=== PATIENT | female | born 1950 | race Caucasian/White ===

== ENCOUNTER → 2016-04-05 | Outpatient (CLI) | payer MEDICARE ==
[2016-04-05 09:31] LABS: Basophils % (A) 1 %; CH 29.5; CHCM 32.3; Eosinophils # (A) 0.1 k/uL (0-0.7); Eosinophils % (A) 2 %; HCT 43.5 % (34.0-46.0); HDW 2.26; HGB 13.6 gm/dL (11.4-16.0); Luc # (Auto) 0.07; Luc % (Auto) 2; Lymphocytes # (A) 1.3 k/uL (1.0-4.8); Lymphocytes % (A) 29 %; MCH 28.7 pg (25.0-35.0); MCHC 31.2 g/dL (31.0-37.0); MCV 91.7 fL (80.0-100.0); Mean Platelet Volume 7.1; Monocytes # (A) 0.3 k/uL (0-1.0); Monocytes % (A) 6 %; Neutrophils # (A) 2.6 k/uL (1.3-7.7); Neutrophils % (A) 61 %; RBC 4.74 m/uL (3.80-5.40); RDW 13.2 % (11.5-15.5); WBC 4.3 k/uL (3.8-10.6); WBC (Perox) 4.61
[2016-04-05 10:11] LABS: ALT 34 U/L (9-52); AST 30 U/L (14-36); Alkaline Phosphatase 71 U/L (38-126); Amylase 51 U/L (30-110); Anion Gap 9 mmol/L; Blood Urea Nitrogen 13 mg/dL (7-17); Calcium 9.6 mg/dL (8.4-10.2); Carbon Dioxide 29 mmol/L (22-30); Chloride 107 mmol/L (98-107); Glucose 94 mg/dL (74-99); Non-African American GFR(MDRD) >60 (>60 ml/min/1.73 sqM); Potassium 4.5 mmol/L (3.5-5.1); Sodium 145 mmol/L (137-145); Total Bilirubin 0.6 mg/dL (0.2-1.3); Total Protein 6.8 g/dL (6.3-8.2)
--- NOTE | 2016-04-05 12:44 | US ---
EXAMINATION TYPE: US gallbladder DATE OF EXAM: 04/05/2016 9:46 AM COMPARISON: None CLINICAL HISTORY: 65-year-old female R10.9 ABDOMINAL PAIN. RUQ TECHNIQUE: Multiple sonographic images of the right upper quadrant were obtained. FINDINGS: Liver Length: 16.6 cm Gallbladder Wall: 0.2 cm CHD: 0.3 cm Right Kidney: 10.7 x 5.3 x 4.3 cm Pancreas: head not well seen due to overlying bowel gas Liver: Homogeneous echotexture without focal lesion. Gallbladder: There is a 1.9 cm mobile shadowing echogenic gallstone within. No abnormal gallbladder distention, wall thickening, or pericholecystic fluid. Some prominent junctional folds are present. Evidence for sonographic Borrero's sign: neg CBD: Within normal limits. Right Kidney: No hydronephrosis. IMPRESSION: Cholelithiasis with a 1.9 cm mobile gallstone. No ancillary findings of acute cholecystitis.
== END | disposition home or self-care (01) ==
LOC: RADUSWWP 08:30
PROVIDERS: ATTEND Internal Medicine
DX: K80.20 Calculus of gallbladder without cholecystitis without obstruction (principal)
CPT/HCPCS: 36415; 76705; 80053; 82150; 83690; 85025

== ENCOUNTER 2016-06-20 08:53 | Day surgery (SDC) | payer MEDICARE ==
--- NOTE | 2016-06-01 08:46 | HP ---
DATE OF ADMISSION: 06/20/2016 CHIEF COMPLAINT: Chronic cholecystitis. HISTORY OF PRESENT ILLNESS: Patient is a 66-year-old female who comes to the office complaining of frequent episodes of right upper quadrant pain. The patient states this began about 2 months ago, it last for several hours at a time. It is associated with nausea and that has persisted. No significant emesis. No fevers or chills. No change in the color of her skin, urine or stool. The patient had a work-up showing a 1.9 cm gallstone. PAST MEDICAL HISTORY: Denies. PAST SURGICAL HISTORY: Umbilical hernia, inguinal hernia, colonoscopy. MEDICATIONS: Calcium. ALLERGIES: ROCEPHIN. PHYSICAL EXAM: GENERAL: Well-developed, well-nourished elderly female in no distress. HEENT is normocephalic, sclerae is nonicteric. CHEST: No deformities. Abdomen is soft, nontender, nondistended. Extremities without edema. IMPRESSION: A 66-year-old female with chronic cholecystitis. PLAN: Will proceed with laparoscopic cholecystectomy on 06/20. The risks of bleeding, infection, biloma formation, common bile duct injury, retained common bile duct stone, trocar-related injury and conversion to an open procedure were discussed. She understands and wishes to proceed.
[2016-06-15 16:03] VITALS: BMI 21.6
[~2016-06-20 08:53] MED LIST: DEXAMETHASONE SOD PHOSPHATE 10 MG/ML 1 ML VIAL IV ONE; HEPARIN SODIUM,PORCINE 5,000 UNIT/ML 1 ML VIAL SQ ONE; HYDROmorphone 1 MG/ML 1 ML SYRINGE IVP PRN; LACTATED RINGERS 1,000 ML IV SCH; LIDOCAINE 1% 20 ML VIAL (10MG/ML) FOR IV START INTRADERMA PRN; MIDAZOLAM 2 MG/2 ML VIAL IV PRN; ONDANSETRON 4 MG/2 ML VIAL IVP ONE; SCOPOLAMINE 1.5MG/72HR PATCH TRANSDERM ONE; ceFAZolin 2 GM in SODIUM CHLORIDE 0.9% 100 ML IVPB ONE
[2016-06-20] MEDS ORDERED: ROCURONIUM BROMIDE 10 MG/ML 10 ML VIAL IV ONE (09:49)
[2016-06-20] MEDS ORDERED: LIDOCAINE 1% INJ 10MG/ML (20 ML MDV) ONE (09:49)
[2016-06-20] MEDS ORDERED: PROPOFOL 10 MG/ML 20 ML VIAL IV ONE (09:49)
[2016-06-20] MEDS ORDERED: GLYCOPYRROLATE 0.2 MG/ML 2 ML VIAL ONE (09:49)
[2016-06-20] MEDS ORDERED: MIDAZOLAM 2 MG/2 ML VIAL ONE (09:49)
[2016-06-20] MEDS ORDERED: fentaNYL (PF) 50 MCG/ML 2 ML AMP ONE (09:49)
[2016-06-20] MEDS ORDERED: SUCCINYLCHOLINE CHLORIDE 100 MG/5 ML SYR IV ONE (09:49)
[2016-06-20] MEDS ORDERED: NEOSTIGMINE 1 MG/ML 10 ML VIAL ONE (09:49)
[2016-06-20] MEDS ORDERED: HYDROmorphone (PF) 1 MG/ML ONE (09:49)
[2016-06-20] MEDS ORDERED: BUPIVACAIN-EPI 0.25%-1:200,000 30 ML VIAL SQ ONE ×2 (10:04)
[2016-06-20] MEDS ORDERED: LACTATED RINGERS 1,000 ML IV ONE (10:52)
[2016-06-20] MEDS ORDERED: NALOXONE 0.4 MG/ML 1 ML VIAL IV PRN (10:59)
[2016-06-20 11:01] VITALS: RESP 16; TEMP 96.8
--- NOTE | 2016-06-20 11:03 | P.PCN ---
Date of Procedure: 06/20/16 Procedure(s) Performed: PREOPERATIVE DIAGNOSIS: Chronic cholecystitis POSTOPERATIVE DIAGNOSIS: Same, incisional hernia PROCEDURE: Laparoscopic cholecystectomy with repair incisional hernia SURGEON: Giancarlo EBL: Minimal see anesthesia record ANESTHESIA: Gen. COMPLICATIONS: None OPERATIVE PROCEDURE: The patient was brought and placed on the operating room table in the supine position. The patient was placed under general anesthesia at that time. The abdomen was prepped and draped in the usual sterile fashion. Patient had a previous horizontal incision and previous excision of the umbilicus after a prior hernia repair. The patient had a small recurrence present just to the left of midline. Scar was opened up at that location. Dissection of the subcutaneous fat took place using blunt dissection. The fascial defect was identified. This was fairly small measuring only about 6 or 7 no meters. This was utilized for entrance into the peritoneal cavity which occurred bluntly. Insufflation took place up to 15 mmHg. 2 additional 5 mm trochars were placed in the right upper quadrant under direct visualization. A 10 mm trocar was advanced into the epigastric incision site. The gallbladder was retracted superiorly and laterally. The peritoneum overlying the infundibulum was bluntly dissected. The patient's cystic duct was visualized. The junction between the cystic duct common and hepatic duct was identified. The cystic duct was then divided after placement of 3 10 mm clips on the patient 's side and one on the specimen side. The cystic artery was identified and clipped as well. A small vessel was seen along the gallbladder fossa and clipped as well. The gallbladder was then removed from the liver bed using electrocautery. The gallbladder was then removed from the epigastric trocar site with an Endo Catch bag. The gallbladder fossa was irrigated with saline. There was no evidence of any bleeding or biliary drainage seen. I closed the trocar at the umbilicus and also the epigastrium using interrupted 0 Ethibond sutures and the Jerrod Mustafa technique. The skin at all 4 sites was closed using a 4-0 Monocryl stitch. At the end of this procedure the sponge and needle counts were correct. DISPOSITION: Stable to the recovery room
[2016-06-20] MEDS ORDERED: Acetaminophen-Codeine 300-30mg TAB PO ONE (12:56)
[2016-06-20 14:11] VITALS: BP 141/80; PULSE 80
== END 2016-06-20 14:32 | disposition home or self-care (01) ==
LOC: OR 08:53
PROVIDERS: ATTEND Surgery
DX: K80.10 Calculus of gallbladder with chronic cholecystitis without obstruction (principal); K43.2 Incisional hernia without obstruction or gangrene; Z88.1 Allergy status to other antibiotic agents; Z79.899 Other long term (current) drug therapy
CPT/HCPCS: 88304; 47562; 49565; J2250; J1100; J2710; J0690; J2405; J2001; J3010; J1170; J0330; J2704

== ENCOUNTER 2016-06-27 19:57 | Emergency (ER) | payer MEDICARE ==
[2016-06-27 20:47] VITALS: BP 161/81; PULSE 71; RESP 20; TEMP 98.5
--- NOTE | 2016-06-27 21:20 | ED ---
General Adult HPI - General Chief complaint: Recheck/Abnormal Lab/Rx Stated complaint: Post op incision lump Time Seen by Provider: 06/27/16 21:05 Source: patient, RN notes reviewed, old records reviewed Mode of arrival: ambulatory Limitations: no limitations - History of Present Illness Initial comments: Patient is 66-year-old female with chief complaint of noticing a lump over her epigastric incision from her cholecystectomy for one day. Patient states that she does have some bruising around the area as well. She denies any fever or chills, redness or drainage from the incision site. Patient states she called the on-call doctor, Dr. Dominguez. He discussed apply warm compresses over the area. Patient reports that after applying warm compresses that did seem to help. Patient states she is concerned because she is going on vacation for the next 4 days and wanted to be looked at. Patient denies any significant tenderness over the area. She reports that she had no, patients after surgery and everything went well until she noticed this lump at the incision site. All the other incision sites look well and have no evidence of lumps or drainage or erythema. - Related Data Home Medications Medication Instructions Recorded Confirmed Calcium Carbonate/Vitamin D3 1 each PO DAILY 06/15/16 06/15/16 [Calcium 500-Vit D3 600 Tablet] Previous Rx's Medication Instructions Recorded Acetaminophen with Codeine 1 tab PO Q4H #30 tab 06/20/16 [Tylenol w/codeine #3] Allergies Allergy/AdvReac Type Severity Reaction Status Date / Time ceftriaxone [From Rocephin] Allergy Intermediate Abdominal Verified 06/27/16 20: 46 Pain Review of Systems ROS Statement: Those systems with pertinent positive or pertinent negative responses have been documented in the HPI. ROS Other: All systems not noted in ROS Statement are negative. Past Medical History Past Medical History: No Reported History Additional Past Medical History / Comment(s): Lyme's disease 20 years ago History of Any Multi-Drug Resistant Organisms: None Reported Past Surgical History: Adenoidectomy, Breast Surgery, Cholecystectomy, Hernia Repair, Tonsillectomy Additional Past Surgical History / Comment(s): inguinal and umbilical hernia repairs, POLYPECTOMY-NEG Past Anesthesia/Blood Transfusion Reactions: No Reported Reaction Past Psychological History: No Psychological Hx Reported Smoking Status: Never smoker Past Alcohol Use History: Occasional Additional Past Alcohol Use History / Comment(s): NEVER SMOKED, OCC DRINKS Past Drug Use History: None Reported - Past Family History Father Family Medical History: AICD/Pacemaker Additional Family Medical History / Comment(s): AGE 79 LUNG CA Mother Family Medical History: CVA/TIA, Hypertension Additional Family Medical History / Comment(s): STILL ALIVE AGE 88 General Exam - General Exam Comments Initial Comments: 762-ghni-alt female. No distress. Limitations: no limitations General appearance: alert, in no apparent distress Head exam: Present: atraumatic, normocephalic, normal inspection Eye exam: Present: normal appearance, PERRL, EOMI. Absent: scleral icterus, conjunctival injection, periorbital swelling ENT exam: Present: normal exam, mucous membranes moist Neck exam: Present: normal inspection. Absent: tenderness, meningismus, lymphadenopathy Respiratory exam: Present: normal lung sounds bilaterally. Absent: respiratory distress, wheezes, rales, rhonchi, stridor Cardiovascular Exam: Present: regular rate, normal rhythm, normal heart sounds. Absent: systolic murmur, diastolic murmur, rubs, gallop, clicks GI/Abdominal exam: Present: soft, normal bowel sounds, other (Evidence of multiple small incisions from recent cholecystectomy. Patient largest incisions over the epigastric region. There is an evidence of a firm 2 cm mass which could be consistent with either a seroma or hematoma. Patient is nontender with pressing. No evidence of erythema around the incision site. No evidence of drainage around the incision site. Steri-Strips are still intact.) . Absent: distended, tenderness, guarding, rebound, rigid Extremities exam: Present: normal inspection, full ROM, normal capillary refill. Absent: tenderness, pedal edema, joint swelling, calf tenderness Back exam: Present: normal inspection Neurological exam: Present: alert, oriented X3, CN II-XII intact Psychiatric exam: Present: normal affect, normal mood Skin exam: Present: warm, dry, intact, normal color. Absent: rash Course Vital Signs 06/27/16 20:44 Temperature 98.5 F Pulse Rate 71 Respiratory 20 Rate Blood Pressure 161/81 O2 Sat by Pulse 97 Oximetry Medical Decision Making - Medical Decision Making Patient is a pleasant 66-year-old female with no acute distress. Patient is concerned because she has had a lump over the epigastric incision site for one day. She had a cholecystectomy done by about one week ago. She denies any drainage or erythema over this incision site. She denies any tenderness. Patient does have a 2 cm firm mass consistent with either hematoma or seroma underneath the incision. Patient states that he did get somewhat better after putting a warm compress on it. She is wanted to have it looked out before she went on vacation. No evidence of infection at this time. I also discussed the case with Dr. Jorge and he examined the patient as well. We will concluded that is likely hematoma or seroma. Patient agrees with putting warm compresses on it. She understands return parameters which included redness drainage around the incision site or fever or chills . Disposition Clinical Impression: Visit for wound check Disposition: HOME SELF-CARE Condition: Good Additional Instructions: Monitor for any signs of redness, severe tenderness or severe swelling. Patient needs to apply warm compresses over the area. If any of the redness swelling or pain do occur follow-up with her primary care return emergency department at once. Referrals: Yung Phillips MD [Primary Care Provider] - 1-2 days Time of Disposition: 21:20
== END 2016-06-27 21:23 | disposition home or self-care (01) ==
LOC: EC 19:57
DX: R19.06 Epigastric swelling, mass or lump (principal); Z79.899 Other long term (current) drug therapy; Z88.1 Allergy status to other antibiotic agents; Z90.49 Acquired absence of other specified parts of digestive tract; Z98.890 Other specified postprocedural states
CPT/HCPCS: 99283

== ENCOUNTER → 2017-05-09 | Outpatient (CLI) | payer MEDICARE ==
[2017-05-09 09:35] LABS: Basophils % (A) 0 %; Eosinophils # (A) 0.1 k/uL (0-0.7); Eosinophils % (A) 2 %; HCT 40.4 % (34.0-46.0); HGB 13.2 gm/dL (11.4-16.0); Lymphocytes # (A) 1.4 k/uL (1.0-4.8); Lymphocytes % (A) 29 %; MCH 29.1 pg (25.0-35.0); MCHC 32.5 g/dL (31.0-37.0); MCV 89.5 fL (80.0-100.0); Mean Platelet Volume 7.6; Monocytes # (A) 0.3 k/uL (0-1.0); Monocytes % (A) 6 %; Neutrophils # (A) 2.9 k/uL (1.3-7.7); Neutrophils % (A) 62 %; Platelet Count 251 k/uL (150-450); RBC 4.51 m/uL (3.80-5.40); RDW 13.2 % (11.5-15.5); WBC 4.7 k/uL (3.8-10.6)
[2017-05-09 09:53] LABS: Albumin 4.5 g/dL (3.5-5.0); Calcium 9.8 mg/dL (8.4-10.2); Potassium 3.9 mmol/L (3.5-5.1); Total Bilirubin 0.5 mg/dL (0.2-1.3); Total Protein 6.8 g/dL (6.3-8.2)
== END | disposition home or self-care (01) ==
LOC: LABWHC1 08:52
PROVIDERS: ATTEND Internal Medicine
DX: Z00.01 Encounter for general adult medical examination with abnormal findings (principal); E55.9 Vitamin D deficiency, unspecified
CPT/HCPCS: 36415; 80053; 80061; 82306; 85025

== ENCOUNTER → 2017-06-07 | Outpatient (CLI) | payer MEDICARE ==
--- NOTE | 2017-06-07 11:09 | ECHOF ---
Referral Reason:R06.09 dyspnea MEASUREMENTS -------- HEIGHT: 165.1 cm WEIGHT: 59.0 kg BP: RVIDd: 2.4 cm (< 3.3) IVSd: 1.4 cm (0.6 - 1.1) LVIDd: 3.5 cm (3.9 - 5.3) LVPWd: 1.3 cm (0.6 - 1.1) IVSs: 1.8 cm LVIDs: 1.9 cm LVPWs: 1.7 cm LAESV Index (A-L): 18.20 ml/m Ao Diam: 2.9 cm (2.0 - 3.7) AV Cusp: 1.7 cm (1.5 - 2.6) LA Diam: 2.9 cm (2.7 - 3.8) MV EXCURSION: 13.362 mm (> 18.000) MV EF SLOPE: 47 mm/s (70 - 150) EPSS: 0.5 cm MV E Vinicius: 0.59 m/s MV DecT: 254 ms MV A Vinicius: 0.81 m/s MV E/A Ratio: 0.73 RAP: 5.00 mmHg RVSP: 23.61 mmHg FINDINGS -------- Sinus rhythm. This was a technically good study. The left ventricular size is normal. There is mild concentric left ventricular hypertrophy. Overa ll left ventricular systolic function is normal with, an EF between 55 - 60 %. The right ventricle is normal in size and function. The left atrium is normal in size. The right atrium is normal in size. The aortic valve is trileaflet, and appears structurally normal. No aortic stenosis or regurgitation. The mitral valve leaflets are mildly thickened. Mild mitral regurgitation is present. Mild tricuspid regurgitation present. The right ventricular systolic pressure, as measured by Doppl er, is 23.61mmHg. Pulmonic valve appears structurally normal. The aortic root size is normal. Normal inferior vena cava with normal inspiratory collapse consistent with estimated right atrial pre ssure of 5 mmHg. The pericardium is normal. CONCLUSIONS -------- 1. Sinus rhythm. 2. This was a technically good study. 3. The left ventricular size is normal. 4. There is mild concentric left ventricular hypertrophy. 5. Overall left ventricular systolic function is normal with, an EF between 55 - 60 %. 6. The right ventricle is normal in size and function. 7. The left atrium is normal in size. 8. The right atrium is normal in size. 9. The aortic valve is trileaflet, and appears structurally normal. No aortic stenosis or regurgitati on. 10. The mitral valve leaflets are mildly thickened. 11. Mild mitral regurgitation is present. 12. Mild tricuspid regurgitation present. 13. The right ventricular systolic pressure, as measured by Doppler, is 23.61mmHg. 14. Pulmonic valve appears structurally normal. 15. The aortic root size is normal. 16. Normal inferior vena cava with normal inspiratory collapse consistent with estimated right atrial pressure of 5 mmHg. 17. The pericardium is normal. SPEEDER HAND: Siena Britt RDCS
--- NOTE | 2017-06-07 12:23 | ECHOS ---
STRESS ECHOCARDIOGRAM INDICATIONS: Hypertension. MEDICATIONS: Lisinopril. BASELINE HEART RATE: 72 BASELINE BLOOD PRESSURE: 135/100 MAXIMUM HEART RATE: 153 MAXIMUM BLOOD PRESSURE: 194/89 85% MPHR: 129 100% MPHR: 152 METS: 6.8 MAXIMUM STAGE REACHED: 2 TOTAL EXERCISE TIME: 6:00 CLINICAL INFORMATION: History of hypertension, referred for a stress echo. Baseline heart rate was 72 beats per minute. Baseline blood pressure 135/100 mmHg. Baseline 12-lead ECG shows normal sinus rhythm with normal cardiac intervals, normal ST segments and infrequent left bundle branch block morphology PVCs with an upright QRS in lead 2. Patient exercised on Will protocol for 6 minutes achieving a peak heart rate of 153 beats per minute. Normal blood pressure response to exercise. There was no ECG evidence for ischemia. PVCs continued through the stress test with slight increase in frequency, but no nonsustained ventricular tachycardia noted. There was no ECG evidence for ischemia. Baseline 2D echo showed normal LV size and systolic function without segmental wall motion abnormalities. Definity contrast was used to delineate the LV concordant borders. There was augmentation of overall LV contractility without development of any wall motion abnormalities at recovery, regional global LV systolic function remained normal. IMPRESSION: 1. No ECG or echocardiographic evidence for ischemia. 2. Average exercise capacity. 3. Premature ventricular contractions noted. Mild increase in premature ventricular contraction frequency during exercise. MMODL / IJN: [id number] /
== END | disposition home or self-care (01) ==
LOC: RADECHMAIN 08:01
PROVIDERS: ATTEND Internal Medicine
DX: I08.1 Rheumatic disorders of both mitral and tricuspid valves (principal); I49.3 Ventricular premature depolarization; I50.9 Heart failure, unspecified
CPT/HCPCS: 93017; 93306; C8928; Q9950; 93350

== ENCOUNTER → 2017-07-03 | Outpatient (CLI) | payer MEDICARE | END | disposition home or self-care (01) | LOC: LABWHC1 10:03 | PROVIDERS: ATTEND Internal Medicine | DX: R53.83 Other fatigue (principal); Z86.19 Personal history of other infectious and parasitic diseases | CPT/HCPCS: 36415; 86618; 86638; 86666; 86753 ==

== ENCOUNTER → 2018-01-08 | Outpatient (CLI) | payer MEDICARE ==
[2018-01-08 09:43] LABS: Basophils % (A) 1 %; Eosinophils # (A) 0.1 k/uL (0-0.7); Eosinophils % (A) 3 %; HCT 40.5 % (34.0-46.0); HGB 13.3 gm/dL (11.4-16.0); Lymphocytes # (A) 1.3 k/uL (1.0-4.8); Lymphocytes % (A) 33 %; MCH 29.8 pg (25.0-35.0); MCV 90.3 fL (80.0-100.0); Monocytes # (A) 0.2 k/uL (0-1.0); Monocytes % (A) 6 %; Neutrophils # (A) 2.2 k/uL (1.3-7.7); Neutrophils % (A) 56 %; Platelet Count 216 k/uL (150-450); RBC 4.48 m/uL (3.80-5.40); RDW 13.4 % (11.5-15.5)
[2018-01-08 10:34] LABS: Appearance,Urine Clear (Clear); Bacteria,Urine Rare /hpf; Bilirubin,Urine Negative (Negative); Blood,Urine Negative (Negative); Color,Urine Yellow; Glucose,Urine (UA) Negative (Negative); Ketones,Urine Negative (Negative); Leukocyte Esterase,Urine Negative (Negative); Mucus,Urine Many /hpf; Nitrite,Urine Negative (Negative); Protein,Urine 1+ (Negative); RBC,Urine 5 /hpf (0-5); Specific Gravity,Urine 1.028 (1.001-1.035); Squamous Epithelial Cell,Urine <1 /hpf (0-4); Urobilinogen,Urine <2.0 mg/dL (<2.0); WBC,Urine 5 /hpf (0-5)
[2018-01-08 17:10] LABS: Albumin 4.5 g/dL (3.80-4.90); Albumin/Globulin Ratio 2.81 (1.20-2.10); Anion Gap 6.7 mmol/L (4.00-12.00); Calcium 9.6 mg/dL (8.7-10.3); Carbon Dioxide 28.3 mmol/L (21.6-31.8); Globulin 1.6 g/dL (2.1-3.7); Potassium 4.4 mmol/L (3.5-5.5); Total Bilirubin 0.5 mg/dL (0.2-1.2); Total Protein 6.1 g/dL (6.2-8.2)
== END | disposition home or self-care (01) ==
LOC: LABWHC1 08:40
PROVIDERS: ATTEND Internal Medicine
DX: Z00.01 Encounter for general adult medical examination with abnormal findings (principal); E55.9 Vitamin D deficiency, unspecified
CPT/HCPCS: 36415; 80053; 81001; 82306; 85025

== ENCOUNTER → 2018-02-24 | Outpatient (CLI) | payer MEDICARE ==
--- NOTE | 2018-02-27 11:08 | MM ---
Reason for exam: screening (asymptomatic). Last mammogram was performed 1 year ago. History: Patient is postmenopausal. Benign excisional biopsy of the right breast, 1991. Physical Findings: A clinical breast exam by your physician is recommended on an annual basis and results should be correlated with mammographic findings. MG 3D Screening Mammo W/Cad Bilateral CC, MLO, and XCCL view(s) were taken. Prior study comparison: February 21, 2017, bilateral MG 3d screening mammo w/cad. February 13, 2016, bilateral MG 3d screening mammo w/cad. The breast tissue is heterogeneously dense. This may lower the sensitivity of mammography. There is no discrete abnormality. ASSESSMENT: Negative, BI-RAD 1 RECOMMENDATION: Routine screening mammogram of both breasts in 1 year.
== END | disposition home or self-care (01) ==
LOC: RADMAMWWP 08:34
PROVIDERS: ATTEND Obstetrics & Gynecology
DX: Z12.31 Encounter for screening mammogram for malignant neoplasm of breast (principal)
CPT/HCPCS: 77063; 77067

== ENCOUNTER 2018-06-25 23:49 | Observation (INO) | payer MEDICARE ==
[2018-06-26 00:58] LABS: Basophils % (A) 0 %; Eosinophils # (A) 0.2 k/uL (0-0.7); Eosinophils % (A) 3 %; HCT 39.3 % (34.0-46.0); HGB 12.9 gm/dL (11.4-16.0); Lymphocytes # (A) 1.6 k/uL (1.0-4.8); Lymphocytes % (A) 29 %; MCH 29.1 pg (25.0-35.0); MCHC 32.9 g/dL (31.0-37.0); MCV 88.4 fL (80.0-100.0); Mean Platelet Volume 7.4; Monocytes # (A) 0.3 k/uL (0-1.0); Monocytes % (A) 6 %; Neutrophils # (A) 3.2 k/uL (1.3-7.7); Neutrophils % (A) 60 %; Platelet Count 221 k/uL (150-450); RBC 4.44 m/uL (3.80-5.40); RDW 13.7 % (11.5-15.5); WBC 5.4 k/uL (3.8-10.6)
--- NOTE | 2018-06-26 01:04 | ED ---
General Adult HPI - General Chief complaint: Chest Pain Stated complaint: Allergic Reaction Time Seen by Provider: 06/26/18 00:21 Source: patient, RN notes reviewed, old records reviewed Mode of arrival: ambulatory Limitations: no limitations - History of Present Illness Initial comments: 68 -year-old female with past medical history of hypertension presents for evaluation of chest pain. Patient's chest pain began on the right lateral aspect of her chest wall which was initiated with movement. She had this pain since 9 AM this morning approximately 14 hours prior to arrival. She did take an Aleve on several occasions started with some improvement. 2 hours prior to arrival she developed bilateral chest pain across the lower portion of her chest which was associated with diaphoresis and nausea. She has no previous history of CAD. No history of DVT or PE. Patient states this pain didn't radiate into her back. Pain has since improved, it lasted approximately 10 minutes. - Related Data Home Medications Medication Instructions Recorded Confirmed Calcium Carbonate/Vitamin D3 1 each PO DAILY 06/15/16 06/15/16 [Calcium 500-Vit D3 600 Tablet] Lisinopril [Zestril] 10 mg PO DAILY 06/26/18 06/26/18 Previous Rx's Medication Instructions Recorded Acetaminophen with Codeine 1 tab PO Q4H #30 tab 06/20/16 [Tylenol w/codeine #3] Allergies Allergy/AdvReac Type Severity Reaction Status Date / Time ceftriaxone [From Rocephin] Allergy Intermediate Abdominal Verified 06/27/16 20:46 Pain Review of Systems ROS Statement: Those systems with pertinent positive or pertinent negative responses have been documented in the HPI. ROS Other: All systems not noted in ROS Statement are negative. Past Medical History Past Medical History: No Reported History Additional Past Medical History / Comment(s): Lyme's disease 20 years ago History of Any Multi-Drug Resistant Organisms: None Reported Past Surgical History: Adenoidectomy, Breast Surgery, Cholecystectomy, Hernia Repair, Tonsillectomy Additional Past Surgical History / Comment(s): inguinal and umbilical hernia repairs, POLYPECTOMY-NEG Past Anesthesia/Blood Transfusion Reactions: No Reported Reaction Past Psychological History: No Psychological Hx Reported Smoking Status: Never smoker Past Alcohol Use History: Occasional Past Drug Use History: None Reported - Past Family History Father Family Medical History: AICD/Pacemaker Additional Family Medical History / Comment(s): AGE 79 LUNG CA Mother Family Medical History: CVA/TIA, Hypertension Additional Family Medical History / Comment(s): STILL ALIVE AGE 88 General Exam Limitations: no limitations General appearance: alert, in no apparent distress Head exam: Present: atraumatic, normocephalic Eye exam: Present: normal appearance, PERRL ENT exam: Present: normal exam Neck exam: Present: normal inspection. Absent: tenderness, meningismus Respiratory exam: Present: normal lung sounds bilaterally. Absent: respiratory distress, wheezes Cardiovascular Exam: Present: regular rate, normal rhythm GI/Abdominal exam: Present: soft. Absent: distended, tenderness, guarding Extremities exam: Present: normal inspection, normal capillary refill. Absent: pedal edema Neurological exam: Present: alert, oriented X3, CN II-XII intact. Absent: motor sensory deficit Psychiatric exam: Present: normal affect, normal mood Skin exam: Present: warm, dry, intact, normal color. Absent: cyanosis, diaphoretic Course Vital Signs 06/26/18 06/26/18 00:11 02:30 Temperature 97.5 F L Pulse Rate 58 L 57 L Respiratory 20 16 Rate Blood Pressure 161/81 147/72 O2 Sat by Pulse 100 99 Oximetry EKG Findings - EKG Comments: EKG Findings:: EKG: Sinus bradycardia, rate of 59 CO interval 158, QRS duration 98, QTC 449, no ST segment elevation or depression, T waves are upright Medical Decision Making - Medical Decision Making 68 -year-old female with chest pain. Just prior to arrival patient had bilateral lower chest pain with diaphoresis and nausea. This pain didn't radiate to her back. She was describing the pain is sharp in nature. There is concern for aortic pathology. EKG obtained, this was negative for definitive si gns of ischemia. Chest x-ray showed normal heart, normal mediastinum, no acute cardiopulmonary disease. CT angiography was obtained which showed a normal aorta, there was fecal impaction and constipation. No acute abdominal or cardiothoracic pathology. Normal CBC, normal CMP, urinalysis negative. Pain is somewhat concerning. We will be kept in observation for serial cardiac enzymes, telemetry, cardiology consultation. - Lab Data Result diagrams: 06/26/18 00:50 06/26/18 00:50 Lab Results 06/26/18 06/26/18 06/26/18 Range/Units 00:50 00:50 00:50 WBC 5.4 (3.8-10.6) k/uL RBC 4.44 (3.80-5.40) m/uL Hgb 12.9 (11.4-16.0) gm/dL Hct 39.3 (34.0-46.0) % MCV 88.4 (80.0-100.0) fL MCH 29.1 (25.0-35.0) pg MCHC 32.9 (31.0-37.0) g/dL RDW 13.7 (11.5-15.5) % Plt Count 221 (150-450) k/uL Neutrophils % 60 % Lymphocytes % 29 % Monocytes % 6 % Eosinophils % 3 % Basophils % 0 % Neutrophils # 3.2 (1.3-7.7) k/uL Lymphocytes # 1.6 (1.0-4.8) k/uL Monocytes # 0.3 (0-1.0) k/uL Eosinophils # 0.2 (0-0.7) k/uL Basophils # 0.0 (0-0.2) k/uL PT 10.2 (9.0-12.0) sec INR 0.9 (<1.2) APTT 24.2 (22.0-30.0) sec Sodium 141 (137-145) mmol/L Potassium 3.8 (3.5-5.1) mmol/L Chloride 107 (98-107) mmol/L Carbon Dioxide 25 (22-30) mmol/L Anion Gap 9 mmol/L BUN 13 (7-17) mg/dL Creatinine 0.76 (0.52-1.04) mg/dL Est GFR (CKD-EPI)AfAm >90 (>60 ml/min/1.73 sqM) Est GFR (CKD-EPI)NonAf 81 (>60 ml/min/1.73 sqM) Glucose 101 H (74-99) mg/dL Plasma Lactic Acid Theodore (0.7-2.0) mmol/L Calcium 9.7 (8.4-10.2) mg/dL Magnesium 2.0 (1.6-2.3) mg/dL Total Bilirubin 0.5 (0.2-1.3) mg/dL AST 37 H (14-36) U/L ALT 35 (9-52) U/L Alkaline Phosphatase 72 (38-126) U/L Troponin I (0.000-0.034) ng/mL Total Protein 6.5 (6.3-8.2) g/dL Albumin 4.5 (3.5-5.0) g/dL Lipase 309 H (23-300) U/L Urine Color Urine Appearance (Clear) Urine pH (5.0-8.0) Ur Specific [place] (1.001-1.035) Urine Protein (Negative) Urine Glucose (UA) (Negative) Urine Ketones (Negative) Urine Blood (Negative) Urine Nitrite (Negative) Urine Bilirubin (Negative) Urine Urobilinogen (<2.0) mg/dL Ur Leukocyte Esterase (Negative) Urine RBC (0-5) /hpf Urine WBC (0-5) /hpf Ur Squamous Epith Cells (0-4) /hpf 06/26/18 06/26/18 06/26/18 Range/Units 00:50 00:50 02:05 WBC (3.8-10.6) k/uL RBC (3.80-5.40) m/uL Hgb (11.4-16.0) gm/dL Hct (34.0-46.0) % MCV (80.0-100.0) fL MCH (25.0-35.0) pg MCHC (31.0-37.0) g/dL RDW (11.5-15.5) % Plt Count (150-450) k/uL Neutrophils % % Lymphocytes % % Monocytes % % Eosinophils % % Basophils % % Neutrophils # (1.3-7.7) k/uL Lymphocytes # (1.0-4.8) k/uL Monocytes # (0-1.0) k/uL Eosinophils # (0-0.7) k/uL Basophils # (0-0.2) k/uL PT (9.0-12.0) sec INR (<1.2) APTT (22.0-30.0) sec Sodium (137-145) mmol/L Potassium (3.5-5.1) mmol/L Chloride (98-107) mmol/L Carbon Dioxide (22-30) mmol/L Anion Gap mmol/L BUN (7-17) mg/dL Creatinine (0.52-1.04) mg/dL Est GFR (CKD-EPI)AfAm (>60 ml/min/1.73 sqM) Est GFR (CKD-EPI)NonAf (>60 ml/min/1.73 sqM) Glucose (74-99) mg/dL Plasma Lactic Acid Theodore 0.9 (0.7-2.0) mmol/L Calcium (8.4-10.2) mg/dL Magnesium (1.6-2.3) mg/dL Total Bilirubin (0.2-1.3) mg/dL AST (14-36) U/L ALT (9-52) U/L Alkaline Phosphatase (38-126) U/L Troponin I <0.012 (0.000-0.034) ng/mL Total Protein (6.3-8.2) g/dL Albumin (3.5-5.0) g/dL Lipase (23-300) U/L Urine Color Colorless Urine Appearance Clear (Clear) Urine pH 7.0 (5.0-8.0) Ur Specific [place] 1.020 (1.001-1.035) Urine Protein Negative (Negative) Urine Glucose (UA) Negative (Negative) Urine Ketones Negative (Negative) Urine Blood Negative (Negative) Urine Nitrite Negative (Negative) Urine Bilirubin Negative (Negative) Urine Urobilinogen <2.0 (<2.0) mg/dL Ur Leukocyte Esterase Small H (Negative) Urine RBC <1 (0-5) /hpf Urine WBC 3 (0-5) /hpf Ur Squamous Epith Cells <1 (0-4) /hpf Disposition Clinical Impression: Chest pain Disposition: ADMITTED IP TO THIS [facility] Condition: Stable Is patient prescribed a controlled substance at d/c from ED?: No Referrals: Yung Phillips MD [Primary Care Provider] - 1-2 days Decision to Admit Reason: Admit from EC Decision Date: 06/26/18 Decision Time: 03:34
[2018-06-26 01:07] LABS: ALT 35 U/L (9-52); AST 37 U/L (14-36); Albumin 4.5 g/dL (3.5-5.0); Alkaline Phosphatase 72 U/L (38-126); Anion Gap 9 mmol/L; Blood Urea Nitrogen 13 mg/dL (7-17); Calcium 9.7 mg/dL (8.4-10.2); Carbon Dioxide 25 mmol/L (22-30); Chloride 107 mmol/L (98-107); Glucose 101 mg/dL (74-99); Lipase 309 U/L (23-300); Potassium 3.8 mmol/L (3.5-5.1); Sodium 141 mmol/L (137-145); Total Bilirubin 0.5 mg/dL (0.2-1.3); Total Protein 6.5 g/dL (6.3-8.2)
[2018-06-26 01:08] LABS: INR 0.9 (<1.2); Partial Thromboplastin Time 24.2 sec (22.0-30.0); Prothrombin Time 10.2 sec (9.0-12.0)
[2018-06-26 02:15] LABS: Appearance,Urine Clear (Clear); Bilirubin,Urine Negative (Negative); Blood,Urine Negative (Negative); Color,Urine Colorless; Glucose,Urine (UA) Negative (Negative); Ketones,Urine Negative (Negative); Leukocyte Esterase,Urine Small (Negative); Nitrite,Urine Negative (Negative); Protein,Urine Negative (Negative); RBC,Urine <1 /hpf (0-5); Squamous Epithelial Cell,Urine <1 /hpf (0-4); Urobilinogen,Urine <2.0 mg/dL (<2.0); WBC,Urine 3 /hpf (0-5)
--- NOTE | 2018-06-26 02:16 | CT ---
EXAM: CT Angiography Chest With and without Intravenous Contrast CLINICAL HISTORY: ITS.REASON CT Reason: Pain TECHNIQUE: Axial computed tomographic angiography images of the chest with and without intravenous contrast using pulmonary embolism protocol. CTDI is 6 mGy and DLP is 776 mGy-cm. This CT exam was performed using one or more of the following dose reduction techniques: automated exposure control, adjustment of the mA and/or kV according to patient size, and/or use of iterative reconstruction technique. MIP reconstructed images were created and reviewed. COMPARISON: No relevant prior studies available. FINDINGS: Pulmonary arteries: No filling defects. Aorta: No thoracic aortic aneurysm. Lungs: No mass. No consolidation. Pleural space: No significant effusion. No pneumothorax. Heart: No cardiomegaly or pericardial effusion. Bones/joints: No acute fracture or dislocation. Soft tissues: Unremarkable. Lymph nodes: No enlarged lymph nodes. IMPRESSION: No acute intrathoracic findings. EXAM: CT Angiography Abdomen and Pelvis With and without Intravenous Contrast CLINICAL HISTORY: ITS.REASON CT Reason: Pain TECHNIQUE: Axial computed tomographic angiography images of the abdomen and pelvis with and without intravenous contrast. CTDI is 6 mGy and DLP is 776 mGy- cm. This CT exam was performed using one or more of the following dose reduction techniques: automated exposure control, adjustment of the mA and/or kV according to patient size, and/or use of iterative reconstruction technique. MIP reconstructed images were created and reviewed. COMPARISON: CT abdomen 10/15/13 FINDINGS: VASCULATURE: Aorta: No abdominal aortic aneurysm. No dissection. Celiac trunk and mesenteric arteries: No occlusion or significant stenosis. Renal arteries: No occlusion or significant stenosis. Iliac arteries: No occlusion or significant stenosis. ABDOMEN: Liver: Unremarkable. No mass. Gallbladder and bile ducts: Removed. Pancreas: Unremarkable. No ductal dilation. No mass. Spleen: Unremarkable. No splenomegaly. Adrenals: Unremarkable. No mass. Kidneys and ureters: Unremarkable. No hydronephrosis. No solid mass. Stomach and bowel: Copious amounts of stool, which appears impacted in the descending colon and sigmoid colon. No obstruction. No mucosal thickening. PELVIS: Appendix: No findings to suggest acute appendicitis. Bladder: Unremarkable. No mass. Reproductive: Unremarkable. ABDOMEN and PELVIS: Intraperitoneal space: Unremarkable. No significant fluid collection. No free air. Bones/joints: No acute fracture. No dislocation. Soft tissues: Unremarkable. Lymph nodes: Unremarkable. No enlarged lymph nodes. IMPRESSION: No acute findings in the arterial system of the abdomen and pelvis. Copious amounts of stool throughout the colon with impaction at the descending and sigmoid colon.
--- NOTE | 2018-06-26 02:25 | XR ---
EXAM: XR Chest, 1 View CLINICAL HISTORY: ITS.REASON XR Reason: Pain TECHNIQUE: Frontal view of the chest. COMPARISON: 06/26/18 CT chest IMPRESSION: Normal heart size. No consolidation or pleural effusion.
[2018-06-26] MEDS ORDERED: ASPIRIN 325 MG TAB PO STA (03:29)
[2018-06-26] MEDS ORDERED: NALOXONE 0.4 MG/ML 1 ML VIAL IV PRN (03:31)
[2018-06-26] MEDS ORDERED: MORPHINE SULFATE 4 MG/ML SYRINGE IV PRN (03:31)
[2018-06-26] MEDS ORDERED: ACETAMINOPHEN TAB 325 MG TAB PO PRN (03:31)
[2018-06-26] MEDS ORDERED: ONDANSETRON 4 MG/2 ML VIAL IVP PRN (03:31)
[2018-06-26 08:00] VITALS: TEMP 97.7
[2018-06-26] MEDS ORDERED: ASPIRIN 325 MG TAB PO SCH (09:00)
[2018-06-26 09:02] VITALS: RESP 16
[2018-06-26] MEDS ORDERED: LISINOPRIL 10 MG TAB PO SCH (09:15)
--- NOTE | 2018-06-26 10:08 | P.CRDCN ---
History of Present Illness Consult date: 06/26/18 History of present illness: This is a 68-year-old female with history of Lyme's disease and hypertension who came to the emergency room with complaints of right-sided flank pain. Apparently she was doing something physical and felt that she might have pulled a muscle. Patient took several pills of Tylenol and also Tylenol with codeine. Subsequent a she started having pain in the chest and abdomen all over the body and finally she came to the emergency room. Her EKGs did not reveal any acute changes. Her cardiac enzymes are negative. Computed tomography scan of the thoracic aorta was negative for any dissection. The pain is localized in the right flank area. There is mild tenderness and the pain increases on deep breathing. The pain is much better today. She was also found to be had constipation and impaction. Patient had in emergency seemed to feeling better. Her chest pains appear to be atypical and probably muscular skeletal. Patient is going to have an echocardiogram and stress echo. If the tests are negative patient could be discharged home. Review of Systems As per the chart Past Medical History Past Medical History: No Reported History Additional Past Medical History / Comment(s): Lyme's disease 20 years ago History of Any Multi-Drug Resistant Organisms: None Reported Past Surgical History: Adenoidectomy, Breast Surgery, Cholecystectomy, Hernia Repair, Tonsillectomy Additional Past Surgical History / Comment(s): inguinal and umbilical hernia repairs, POLYPECTOMY-NEG Past Anesthesia/Blood Transfusion Reactions: No Reported Reaction Past Psychological History: No Psychological Hx Reported Smoking Status: Never smoker Past Alcohol Use History: Occasional Past Drug Use History: None Reported - Past Family History Father Family Medical History: AICD/Pacemaker Additional Family Medical History / Comment(s): AGE 79 LUNG CA Mother Family Medical History: CVA/TIA, Hypertension Additional Family Medical History / Comment(s): STILL ALIVE AGE 88 Medications and Allergies Home Medications Medication Instructions Recorded Confirmed Type Calcium Carbonate/Vitamin D3 1 tab PO DAILY 06/15/16 06/26/18 History [Calcium 500-Vit D3 600 Tablet] Lisinopril [Zestril] 10 mg PO DAILY 06/26/18 06/26/18 History Vitamin E Acetate [Vitamin E] 200 unit PO DAILY 06/26/18 06/26/18 History Allergies Allergy/AdvReac Type Severity Reaction Status Date / Time ceftriaxone [From Rocephin] AdvReac Intermediate Abdominal Verified 06/26/18 07:35 Pain Physical Exam Vitals: Vital Signs Temp Pulse Pulse Resp BP BP Pulse Ox 06/26/18 08:59 63 16 173/80 99 06/26/18 07:58 97.7 F 65 12 141/90 100 06/26/18 06:30 79 18 158/82 98 06/26/18 06:00 98.5 F 61 16 146/89 94 L 06/26/18 05:30 60 15 136/87 97 06/26/18 05:00 63 15 146/90 97 06/26/18 04:30 59 L 16 138/82 96 06/26/18 04:00 60 16 136/86 100 06/26/18 03:30 60 18 144/84 97 06/26/18 03:00 57 L 18 131/75 98 06/26/18 02:30 57 L 16 147/72 99 06/26/18 00:11 97.5 F L 58 L 20 161/81 100 Intake and Output 06/25/18 06/26/18 06/26/18 22:59 06:59 14:59 Other: Weight 58.967 kg GENERAL EXAM: Patient is alert and oriented and doesn't appear to be in any ac [place] distress HEENT: Normocephalic. Normal reaction of pupils, equal size, normal range of extraocular motion. No erythema or exudates in the throat. NECK: No masses, no nuchal rigidity. CHEST: No chest wall deformity. LUNGS: Equal air entry with no crackles or wheeze. HEART: S1 and S2 normal with no audible mumurs or gallops. Regular rhythm, femorals equal on both sides.. ABDOMEN: No hepatosplenomegaly, normal bowel sounds, no guarding or rigidity. SKIN: No rashes CENTRAL NERVOUS SYSTEM: No focal deficits. EXTREMITIES: No cyanosis, clubbing or edema. Results 06/26/18 00:50 06/26/18 00:50 Cardiac Enzymes 06/26/18 06/26/18 06/26/18 Range/Units 00:50 00:50 05:50 AST 37 H (14-36) U/L Troponin I <0.012 <0.012 (0.000-0.034) ng/mL Coagulation 06/26/18 Range/Units 00:50 PT 10.2 (9.0-12.0) sec APTT 24.2 (22.0-30.0) sec CBC 06/26/18 Range/Units 00:50 WBC 5.4 (3.8-10.6) k/uL RBC 4.44 (3.80-5.40) m/uL Hgb 12.9 (11.4-16.0) gm/dL Hct 39.3 (34.0-46.0) % Plt Count 221 (150-450) k/uL Comprehensive Metabolic Panel 06/26/18 Range/Units 00:50 Sodium 141 (137-145) mmol/L Potassium 3.8 (3.5-5.1) mmol/L Chloride 107 (98-107) mmol/L Carbon Dioxide 25 (22-30) mmol/L BUN 13 (7-17) mg/dL Creatinine 0.76 (0.52-1.04) mg/dL Glucose 101 H (74-99) mg/dL Calcium 9.7 (8.4-10.2) mg/dL AST 37 H (14-36) U/L ALT 35 (9-52) U/L Alkaline Phosphatase 72 (38-126) U/L Total Protein 6.5 (6.3-8.2) g/dL Albumin 4.5 (3.5-5.0) g/dL Current Medications Generic Name Dose Route Start Last Admin Trade Name Freq PRN Reason Stop Dose Admin Acetaminophen 650 mg 06/26/18 03:31 Tylenol Tab PO Q6HR PRN Mild Pain or Fever > 100.5 Aspirin 325 mg 06/26/18 09:00 06/26/18 09:28 Aspirin PO 325 mg DAILY MERY Administration Lisinopril 10 mg 06/26/18 09:15 06/26/18 09:28 Zestril PO 10 mg DAILY MERY Administration Morphine Sulfate 4 mg 06/26/18 03:31 Morphine Sulfate (Inj) IV Q4HR PRN Severe Pain Naloxone HCl 0.2 mg 06/26/18 03:31 Narcan IV Q2M PRN Opioid Reversal Ondansetron HCl 4 mg 06/26/18 03:31 Zofran IVP Q8HR PRN Nausea And Vomiting Intake and Output 06/25/18 06/26/18 06/26/18 22:59 06:59 14:59 Other: Weight 58.967 kg 06/26/18 00:50 06/26/18 00:50 EKG Interpretations (text) Sinus rhythm without any acute changes Assessment and Plan (1) Essential hypertension Current Visit: Yes Status: Acute Code(s): I10 - ESSENTIAL (PRIMARY) HYPERTENSION SNOMED Code(s): 77862211 (2) Chest pain Current Visit: Yes Status: Acute Code(s): R07.9 - CHEST PAIN, UNSPECIFIED SNOMED Code(s): 49243747 (3) Abdominal pain Current Visit: No Status: Acute Code(s): R10.9 - UNSPECIFIED ABDOMINAL PAIN SNOMED Code(s): 46704114 Plan: Her pains appear to be muscular skeletal. We'll proceed with echo and stress echocardiogram. If the test are negative patient could be discharged home from [facility] standpoint.
[2018-06-26 10:33] VITALS: PULSE 64
[2018-06-26 10:46] VITALS: BMI 21.6
--- NOTE | 2018-06-26 13:07 | P.STRESS ---
- Stress Test Note Stress Test Results/Findings: Exam Performed: stress echo exercise with con Exam Date: 06/26/18 Reason for Exam: Chest Pain Height: 5 ft 5 in Weight: 58.967 kg Protocol: Will Stage: 2 Duration of Exercise: 6:09 Resting Heart Rate: 94 Resting Blood Pressure: 154/103 Maximum Achieved Heart Rate: 166 Maximum Achieved Blood Pressure: 204/71 85% PMHR: 128 100% PMHR: 151 METS: 7.3 Technologist Comment: Stress Test Results/Findings: This is a 68-year-old female with history of hypertension, family history of ischemic heart disease who was admitted to the hospital with complaints of chest pain. Stress data : Baseline EKG showed sinus rhythm with normal CT interval and QRS duration. Blood pressure at rest is 1 5403 with pulse rate of 94. Patient walked on the Will protocol for 6 minutes and 9 seconds achieving a maximum heart rate of 166 with blood pressure 204/94. EKGs taken during and after exercise did not reveal any changes of ischemia. Echo data: Baseline echo images show normal wall motion and thickening. Exercise echo images showed augmentation of wall motion and thickening in all the segments. Final impression: #1. Negative stress test #2. Negative stress echo
--- NOTE | 2018-06-26 16:54 | DS ---
DISCHARGE SUMMARY HISTORY AND PHYSICAL AND DISCHARGE SUMMARY: DATE OF ADMISSION: 06/26/2018 DATE OF DISCHARGE: 06/26/2018 PRESENTING COMPLAINT: Right hip pain. HISTORY OF PRESENTING COMPLAINT: This is a very pleasant 68-year-old patient who follows with Dr. Yung Phillips who is very active. Her only medical history is that of hypertension. The day before she was moving a basket of laundry. She developed pain on the right side just above the hip area, and the pain was still present for some time, so she took Advil. The next time around the pain was still present and she took some Tylenol #3 and went to sleep. The patient woke up with some more pain in that area and broke out in a sweat. There was no precordial pain. No shortness of breath. Because she was perspiring, she decided to come into the hospital. Troponins were negative. Cardiology was consulted. REVIEW OF SYSTEMS: CONSTITUTIONAL: Perspiring. HEENT: None. RESPIRATORY: None. CARDIOVASCULAR: None. GASTROINTESTINAL: None. GENITOURINARY: None. MUSCULOSKELETAL: Pain in the right hip. DERMATOLOGICAL: None. HEMATOLOGICAL: None. LYMPHATICS: None. PSYCHIATRY: None. NEUROLOGICAL: None. PAST MEDICAL HISTORY: 1. Lyme disease 20 years ago. 2. Hypertension. PAST SURGICAL HISTORY: 1. Adenoidectomy. 2. Breast surgery. 3. Cholecystectomy. 4. Hernia repair. 5. Tonsillectomy. 6. Inguinal and umbilical hernia repair. 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 . No smoking. Alcohol occasionally. FAMILY HISTORY: Lung cancer and stroke. HOME MEDICATIONS: 1. Vitamin E 200 units a day. 2. Zestril 10 mg p.o. daily. 3. Calcium 500 with vitamin D3 one tablet p.o. daily. ALLERGIES: CEFTRIAXONE. PHYSICAL EXAMINATION: Temperature 97.7, pulse 65, respiration 12, blood pressure 141/90, pulse ox 100% on room air. GENERAL APPEARANCE: Average build. Sitting up. Slightly anxious. EYES: Pupils equal. Conjunctivae normal. HEENT: External appearance of nose and ears normal. Oral cavity normal. NECK: JVD not raised. Mass not palpable. RESPIRATORY: Effort normal. Lungs are clear. CARDIOVASCULAR: First and second sounds normal. No edema. ABDOMEN: Soft, non-tender. Liver and spleen not palpable. LYMPHATIC: No lymph node palpable in neck or axillae. PSYCHIATRY: Alert and oriented x3. Mood and affect normal. NEUROLOGICAL: Pupils equal. Cranial nerves grossly intact. Power and sensation grossly intact. INVESTIGATIONS: White count 5.4, hemoglobin 12.9, platelets normal. Potassium 3.8. BUN and creatinine are normal. Troponin x3 negative. EKG tracing, personally reviewed by me, is nonspecific. Chest x-ray film, personally reviewed by me, shows lung newsome to be clear. Stress echocardiogram reported negative per Cardiology. Thoracic aorta CT scan negative. Large amount of stool in the colon. ASSESSMENT: 1. Right hip pain, musculoskeletal, secondary to muscular strain. 2. Severe constipation; responded well to enema this morning. 3. Essential hypertension. 4. Episode of perspiration, non-cardiac. PLAN: Patient underwent a stress test per Cardiology that was negative. The patient's right- sided pain was musculoskeletal. Will add a baby aspirin. Care was discussed with the patient and her . Questions were answered. CONSULTATION: Dr. Browning. Follow up with Dr. Chaney on 07/01/2018. Follow up with Dr. Browning on 08/04/2018. This is both a history and physical and a discharge summary. MMODL / IJN: [id number] /
[2018-06-26 17:27] VITALS: BP 128/74
--- NOTE | 2018-06-27 09:22 | ECHOS ---
Stress Test Results/Findings: Exam Performed: stress echo exercise with con Exam Date: 06/26/18 Reason for Exam: Chest Pain Height: 5 ft 5 in Weight: 58.967 kg Protocol: Will Stage: 2 Duration of Exercise: 6:09 Resting Heart Rate: 94 Resting Blood Pressure: 154/103 Maximum Achieved Heart Rate: 166 Maximum Achieved Blood Pressure: 204/71 85% PMHR: 128 100% PMHR: 151 METS: 7.3 Technologist Comment: Stress Test Results/Findings: This is a 68-year-old female with history of hypertension, family history of ischemic heart disease who was admitted to the hospital with complaints of chest pain. Stress data : Baseline EKG showed sinus rhythm with normal IN interval and QRS duration. Blood pressure at rest is 1 5403 with pulse rate of 94. Patient walked on the Will protocol for 6 minutes and 9 seconds achieving a maximum heart rate of 166 with blood pressure 204/94. EKGs taken during and after exercise did not reveal any changes of ischemia. Echo data: Baseline echo images show normal wall motion and thickening. Exercise echo images showed augmentation of wall motion and thickening in all the segments. Final impression: #1. Negative stress test #2. Negative stress echo MTDD
== END 2018-06-26 16:00 ==
LOC: EC 23:49 → 1SOBS 06-26 03:31 → 2ORMAIN 06-26 08:57
PROVIDERS: ADMIT Hospitalist; ATTEND Hospitalist
DX: S76.011A Strain of muscle, fascia and tendon of right hip, initial encounter (principal); K59.00 Constipation, unspecified; R07.89 Other chest pain; R10.9 Unspecified abdominal pain; R61 Generalized hyperhidrosis; R11.0 Nausea; I10 Essential (primary) hypertension; X50.9XXA Other and unspecified overexertion or strenuous movements or postures, initial encounter; Z90.49 Acquired absence of other specified parts of digestive tract; Z87.898 Personal history of other specified conditions; Z79.899 Other long term (current) drug therapy; Z88.1 Allergy status to other antibiotic agents; Z80.1 Family history of malignant neoplasm of trachea, bronchus and lung; Z82.3 Family history of stroke
CPT/HCPCS: 99285; 36415; 93005; 93351; 80053; 83605; 83690; 83735; 84484; 85025; 85610; 85730; 81001; 71045; 71275; 74174; G0378; Q9967

== ENCOUNTER → 2019-03-10 | Outpatient (CLI) | payer MEDICARE ==
--- NOTE | 2019-03-10 08:55 | BD ---
EXAMINATION TYPE: Axial Bone Density DATE OF EXAM: 03/10/2019 COMPARISON: 2017 CLINICAL HISTORY: M [age] Height: 5 FT 3 1/2 IN Weight: 128 FRAX RISK QUESTIONS: Alcohol (3 or more units per day): NO Family History (Parent hip fracture): YES Glucocorticoids (More than 3mos): NO (Ex: prednisone, prednisolone, methylprednisolone, dexamethasone, and hydrocortisone). History of Fracture in Adulthood: YES Secondary Osteoporosis: 1. Type 1 Diabetes: NO 2. Hyperthyroidism: NO 3. Menopause before 45: NO 4. Malnutrition: NO 5. Chronic liver disease: NO Rheumatoid Arthritis: NO Current Tobacco Use: NO RISK FACTORS HISTORY OF: Active: YES Postmenopausal woman: AGE 49 Lost more than 2 inches in height since high school: YES MEDICATIONS: Additional Medications: LISINOPRIL, BABY ASPIRIN Additional History: EXAM MEASUREMENTS: Bone mineral densitometry was performed using the [employer] System. Bone mineral density as measured about the Lumbar spine is: ----- L1-L4(G/cm2): 0.914 T Score Values are as follows: ----- L2: -3.0 ----- L3: -2.2 ----- L4: -1.4 ----- L1-L4: -2.2 Bone mineral density has: DECREASED -2.1 % since study of: 2016 Bone mineral density about the R hip (g/cm2): 0.732 Bone mineral density about the L hip (g/cm2): 0.728 T Score values are as follows: -----R Neck: -2.2 -----L Neck: -2.2 -----R Total: -2.2 -----L Total: -1.9 Bone mineral density has: DECREASED -2.7 % since study of: 2017 IMPRESSION: Osteoporosis (T Score less than -2.5). There is increased fracture risk and therapy is usually indicated based on age. Re-Screen 1-2 years. NOTE: T-SCORE=SD OF THE YOUNG ADULT MEAN.
--- NOTE | 2019-03-11 10:14 | MM ---
Reason for exam: screening (asymptomatic). Last mammogram was performed 1 year ago. History: Patient is postmenopausal. Benign excisional biopsy of the right breast, 1991. Physical Findings: A clinical breast exam by your physician is recommended on an annual basis and results should be correlated with mammographic findings. MG 3D Screening Mammo W/Cad Bilateral CC and MLO view(s) were taken. Prior study comparison: February 24, 2018, bilateral MG 3d screening mammo w/cad. February 21, 2017, bilateral MG 3d screening mammo w/cad. The breast tissue is extremely dense which could obscure a lesion on mammography. No significant changes when compared with prior studies. ASSESSMENT: Benign, BI-RAD 2 RECOMMENDATION: Routine screening mammogram of both breasts in 1 year.
== END | disposition home or self-care (01) ==
LOC: RADMAMWWP 07:22
PROVIDERS: ATTEND Obstetrics & Gynecology
DX: Z12.31 Encounter for screening mammogram for malignant neoplasm of breast (principal); Z13.820 Encounter for screening for osteoporosis; M81.0 Age-related osteoporosis without current pathological fracture; Z78.0 Asymptomatic menopausal state
CPT/HCPCS: 77063; 77067; 77080

== ENCOUNTER 2020-08-06 15:47 | Emergency (ER) | payer MEDICARE ==
[2020-08-06 16:24] VITALS: TEMP 98.1
--- NOTE | 2020-08-06 18:07 | ED ---
ENT HPI - General Source: patient Mode of arrival: ambulatory Limitations: no limitations <Edgar العلي - Last Filed: 08/06/20 19:52> <Nallely Perry - Last Filed: 08/06/20 22:03> - General Chief complaint: ENT Stated complaint: neck pain Time Seen by Provider: 08/06/20 17:41 - History of Present Illness Initial comments: 70-year-old female presents to the emergency department with a chief complaint of neck pain and difficulty swallowing. Patient reports the incident occurred early this morning when she woke up. Patient reports most of the pain is located along the anterior aspect of her neck and she has some difficulty swallowing but denies any sore throat. She denies any swelling of the neck or neck stiffness but she states it is painful, sharp in nature. She does report chills but denies any fevers. Denies any nausea vomiting or diarrhea. She denies any drooling or changes in her speech. Not diabetic. (Edgar العلي) - Related Data Home Medications Medication Instructions Recorded Confirmed Calcium Carbonate [Calcium] 600 mg PO DAILY 08/06/20 08/06/20 Cholecalciferol [Vitamin D3 (25 50 mcg PO DAILY 08/06/20 08/06/20 Mcg = 1000 Iu)] lisinopriL 20 mg PO DAILY 08/06/20 08/06/20 Previous Rx's Medication Instructions Recorded Aspirin 81 mg PO DAILY #1 chewable 06/26/18 Allergies Allergy/AdvReac Type Severity Reaction Status Date / Time ceftriaxone [From Rocephin] AdvReac Intermediate Abdominal Verified 08/06/20 20:43 Pain Review of Systems ROS Other: All systems not noted in ROS Statement are negative. <Edgar العلي - Last Filed: 08/06/20 19:52> ROS Other: All systems not noted in ROS Statement are negative. <Nallely Perry - Last Filed: 08/06/20 22:03> ROS Statement: Those systems with pertinent positive or pertinent negative responses have been documented in the HPI. Past Medical History Past Medical History: No Reported History Additional Past Medical History / Comment(s): Lyme's disease 20 years ago History of Any Multi-Drug Resistant Organisms: None Reported Past Surgical History: Adenoidectomy, Breast Surgery, Cholecystectomy, Hernia Repair, Tonsillectomy Additional Past Surgical History / Comment(s): inguinal and umbilical hernia repairs, POLYPECTOMY-NEG Past Anesthesia/Blood Transfusion Reactions: No Reported Reaction Past Psychological History: No Psychological Hx Reported Smoking Status: Never smoker Past Alcohol Use History: Occasional Past Drug Use History: None Reported - Past Family History Father Family Medical History: AICD/Pacemaker Additional Family Medical History / Comment(s): AGE 79 LUNG CA Mother Family Medical History: CVA/TIA, Hypertension Additional Family Medical History / Comment(s): STILL ALIVE AGE 88 <Edgar العلي Last Filed: 08/06/20 19:52> General Exam Limitations: no limitations General appearance: alert, in no apparent distress Head exam: Present: atraumatic, normocephalic, normal inspection Eye exam: Present: normal appearance, PERRL, EOMI Pupils: Present: normal accommodation ENT exam: Present: normal exam, normal oropharynx, mucous membranes moist, TM's normal bilaterally, normal external ear exam Neck exam: Present: normal inspection, tenderness (Tenderness over lymph nodes), full ROM, lymphadenopathy (Bilateral anterior cervical) Respiratory exam: Present: normal lung sounds bilaterally. Absent: respiratory distress, wheezes, rales, rhonchi, stridor, chest wall tenderness, accessory muscle use Cardiovascular Exam: Present: regular rate, normal rhythm, normal heart sounds. Absent: systolic murmur, diastolic murmur Extremities exam: Present: normal inspection, full ROM, normal capillary refill. Absent: tenderness, pedal edema, joint swelling Back exam: Present: normal inspection, full ROM. Absent: tenderness, CVA tenderness (R), CVA tenderness (L) Neurological exam: Present: alert, oriented X3 Psychiatric exam: Present: normal affect, normal mood Skin exam: Present: warm, dry, intact, normal color <Edgar العلي Last Filed: 08/06/20 19:52> Course Vital Signs 08/06/20 08/06/20 16:18 19:12 Temperature 98.1 F Pulse Rate 104 H 102 H Respiratory 20 18 Rate Blood Pressure 146/86 156/82 O2 Sat by Pulse 99 100 Oximetry Medical Decision Making - Lab Data Result diagrams: 08/06/20 19:13 08/06/20 19:13 <Edgar العلي Last Filed: 08/06/20 19:52> - Lab Data Result diagrams: 08/06/20 19:13 08/06/20 19:13 <Nallely Perry - Last Filed: 08/06/20 22:03> - Medical Decision Making 70-year-old female presents to the emergency department with a chief complaint of neck pain and difficulty swallowing. On physical examination, no signs of tonsillar erythema, exudates or any pharyngeal erythema. Anterior cervical lymph nodes noted. No tenderness along the spine. Her vital signs are within normal limits on initial evaluation aside from borderline tachycardia. Patient was given IV fluids, analgesia and 10 mg of IV Decadron. CT of the neck pending. At this time, patient care signed off to Dr. Perry. (Edgra العلي) Patient care was signed out to me, I reviewed the patient's CT was reviewed subglottic edema and tracheal narrowing. I went to reevaluate the patient who does have a change in her voice. I advised her of the findings and that we will transfer her to a facility with ENT ability, patient is agreeable. Time of my evaluation the patient was sitting on the edge of the bed comfortable asking if she could just be seen in the office tomorrow. Her heart rate was 102 she was not hypoxic not on oxygen. I advised the patient she does need to be seen by OSVALDO fraser and will go by ambulance which again she is agreeable. Patient care was discussed with Dr. Olivo in the ER [facility] who accepts transfer. (Nallely Perry) - Lab Data Lab Results 08/06/20 08/06/20 Range/Units 19:13 19:13 WBC 17.7 H (3.8-10.6) k/uL RBC 4.82 (3.80-5.40) m/uL Hgb 14.7 (11.4-16.0) gm/dL Hct 43.3 (34.0-46.0) % MCV 89.8 (80.0-100.0) fL MCH 30.6 (25.0-35.0) pg MCHC 34.1 (31.0-37.0) g/dL RDW 13.0 (11.5-15.5) % Plt Count 240 (150-450) k/uL MPV 7.7 Neutrophils % 92 % Lymphocytes % 2 % Monocytes % 4 % Eosinophils % 2 % Basophils % 0 % Neutrophils # 16.3 H (1.3-7.7) k/uL Lymphocytes # 0.4 L (1.0-4.8) k/uL Monocytes # 0.6 (0-1.0) k/uL Eosinophils # 0.3 (0-0.7) k/uL Basophils # 0.0 (0-0.2) k/uL Sodium 138 (137-145) mmol/L Potassium 4.4 (3.5-5.1) mmol/L Chloride 104 (98-107) mmol/L Carbon Dioxide 26 (22-30) mmol/L Anion Gap 8 mmol/L BUN 10 (7-17) mg/dL Creatinine 0.65 (0.52-1.04) mg/dL Est GFR (CKD-EPI)AfAm >90 (>60 ml/min/1.73 sqM) Est GFR (CKD-EPI)NonAf 90 (>60 ml/min/1.73 sqM) Glucose 140 H (74-99) mg/dL Calcium 10.1 (8.4-10.2) mg/dL Total Bilirubin 1.0 (0.2-1.3) mg/dL AST 43 H (14-36) U/L ALT 21 (4-34) U/L Alkaline Phosphatase 105 (38-126) U/L Total Protein 7.3 (6.3-8.2) g/dL Albumin 5.0 (3.5-5.0) g/dL Disposition <Edgar العلي - Last Filed: 08/06/20 19:52> - Out of Hospital Transfer - Req. Specs Out of Hospital Transfer - Requested Specifics: Other Emergency Center ([place]) <Nallely Perry - Last Filed: 08/06/20 22:03> Clinical Impression: Subglottic edema Disposition: OTHER INSTITUTION NOT DEFINED Condition: Critical Referrals: Vicky Carrizales MD [Primary Care Provider] - 1-2 days
[2020-08-06] MEDS ORDERED: MORPHINE SULFATE 4 MG/ML SYRINGE IVP STA (18:10)
[2020-08-06] MEDS ORDERED: DEXAMETHASONE SOD PHOSPHATE 10 MG/ML 1 ML VIAL IV STA (18:10)
[2020-08-06] MEDS ORDERED: SODIUM CHLORIDE 0.9% 1,000 ML IV STA (18:10)
[2020-08-06 19:12] VITALS: RESP 18
[2020-08-06 19:22] LABS: Basophils % (A) 0 %; Eosinophils # (A) 0.3 k/uL (0-0.7); Eosinophils % (A) 2 %; HCT 43.3 % (34.0-46.0); HGB 14.7 gm/dL (11.4-16.0); Lymphocytes # (A) 0.4 k/uL (1.0-4.8); Lymphocytes % (A) 2 %; MCH 30.6 pg (25.0-35.0); MCHC 34.1 g/dL (31.0-37.0); MCV 89.8 fL (80.0-100.0); Mean Platelet Volume 7.7; Monocytes # (A) 0.6 k/uL (0-1.0); Monocytes % (A) 4 %; Neutrophils # (A) 16.3 k/uL (1.3-7.7); Neutrophils % (A) 92 %; Platelet Count 240 k/uL (150-450); RBC 4.82 m/uL (3.80-5.40); WBC 17.7 k/uL (3.8-10.6)
[2020-08-06 19:35] LABS: ALT 21 U/L (4-34); AST 43 U/L (14-36); African American GFR (CKD) >90 (>60 ml/min/1.73 sqM); Alkaline Phosphatase 105 U/L (38-126); Anion Gap 8 mmol/L; Blood Urea Nitrogen 10 mg/dL (7-17); Calcium 10.1 mg/dL (8.4-10.2); Carbon Dioxide 26 mmol/L (22-30); Chloride 104 mmol/L (98-107); Glucose 140 mg/dL (74-99); Non-African American GFR(CKD) 90 (>60 ml/min/1.73 sqM); Potassium 4.4 mmol/L (3.5-5.1); Sodium 138 mmol/L (137-145); Total Protein 7.3 g/dL (6.3-8.2)
--- NOTE | 2020-08-06 20:52 | CT ---
EXAMINATION TYPE: CT soft tissue neck w con DATE OF EXAM: 08/06/2020 COMPARISON: None HISTORY: Hoarseness snd difficulty with difficulty swallowing. CT DLP: 235.4 mGycm Automated exposure control for dose reduction was used. CONTRAST: Performed with IV Contrast, patient injected with 100 mL of Isovue 300. Images obtained from the ascending aorta to the mid orbits with IV contrast. Skull base is intact. There is normal aeration of the mastoid sinuses. There is normal branching isabel amauri of the great vessels on the aortic arch. Thoracic aorta is atheromatous. There is arterial flow i n the subclavian arteries. Thyroid gland is symmetric. There is contrast opacification of the jugular veins. Trachea is intact. Epiglottis is within normal limits. There is narrowing of the subglottic t rachea this could relate to significant edema in the wall of the hypopharynx. The lower trachea is in tact. The tonsils and adenoids are within normal limits. The tongue is intact. There is no significant cerv ical adenopathy. 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 There is probably significant circumferen tial subglottic edema. No asymmetric mass.
[2020-08-06 22:34] VITALS: BP 158/92; PULSE 112
== END 2020-08-06 22:40 | disposition other institution (70) ==
LOC: EC 15:47
DX: J38.4 Edema of larynx (principal); Z79.82 Long term (current) use of aspirin; Z79.899 Other long term (current) drug therapy
CPT/HCPCS: 36415; 80053; 85025; 70491; 99285; 96374; 96375; J2270; J1100; Q9967

== ENCOUNTER → 2020-09-15 | Outpatient (CLI) | payer MEDICARE ==
--- NOTE | 2020-09-19 08:26 | MM ---
Reason for exam: screening (asymptomatic). Last mammogram was performed 1 year and 6 months ago. History: Patient is postmenopausal. Benign excisional biopsy of the right breast, 1991. Physical Findings: A clinical breast exam by your physician is recommended on an annual basis and results should be correlated with mammographic findings. MG 3D Screening Mammo W/Cad Bilateral CC and MLO view(s) were taken. Prior study comparison: March 10, 2019, bilateral MG 3d screening mammo w/cad. February 24, 2018, bilateral MG 3d screening mammo w/cad. The breast tissue is heterogeneously dense. This may lower the sensitivity of mammography. No significant changes when compared with prior studies. ASSESSMENT: Benign, BI-RAD 2 RECOMMENDATION: Routine screening mammogram of both breasts in 1 year.
== END | disposition home or self-care (01) ==
LOC: RADMAMWWP 06:59
PROVIDERS: ATTEND Internal Medicine
DX: Z12.31 Encounter for screening mammogram for malignant neoplasm of breast (principal); Z78.0 Asymptomatic menopausal state
CPT/HCPCS: 77063; 77067

== ENCOUNTER → 2021-05-30 | Outpatient (CLI) | payer MEDICARE ==
[2021-05-30 14:21] LABS: Basophils # (A) 0.04 X 10*3/uL (0.00-0.10); Basophils % (A) 0.7 %; Eosinophils # (A) 0.13 X 10*3/uL (0.04-0.35); Eosinophils % (A) 2.2 %; HGB 13.5 g/dL (12.0-15.0); Immature Grans, Automated 0.3 %; Lymphocytes # (A) 1.73 X 10*3/uL (0.90-5.00); Lymphocytes % (A) 28.9 %; MCHC 31.4 g/dL (32.0-37.0); MCV 92.3 fL (80.0-97.0); Mean Platelet Volume 11.1 fL (9.5-12.2); Monocytes # (A) 0.51 X 10*3/uL (0.20-1.00); Monocytes % (A) 8.5 %; NRBC Per 100 WBC 0 /100 WBCS (0.0-0.0); Neutrophils # (A) 3.56 X 10*3/uL (1.80-7.70); Neutrophils % (A) 59.4 %; Platelet Count 260 X 10*3/uL (140-440); RBC 4.66 X 10*6/uL (4.10-5.20); RDW 13.6 % (11.5-14.5); WBC 5.99 X 10*3/uL (4.50-10.00)
[2021-05-30 14:46] LABS: ALT 17 U/L (8-44); AST 30 U/L (13-35); Albumin 4.8 g/dL (3.8-4.9); Alkaline Phosphatase 105 U/L (41-126); BUN/Creat Ratio 12.67 Ratio (12.00-20.00); Blood Urea Nitrogen 11.4 mg/dL (9.0-27.0); Calcium 9.8 mg/dL (8.7-10.3); Carbon Dioxide 24.2 mmol/L (20.0-27.5); Chloride 106 mmol/L (96-109); Chol/HDL Ratio 2.32 Ratio; Globulin 2.4 g/dL (1.6-3.3); Glucose 105 mg/dL (70-110); LDL Cholesterol,Calculated 93.6 mg/dL (0.0-131.0); Non-African American GFR(CKD) 63.9 (60.0-200.0); Potassium 3.5 mmol/L (3.5-5.5); Sodium 143 mmol/L (135-145); Total Protein 7.2 g/dL (6.2-8.2); VLDL Calculation 15.08 mg/dL (5.00-40.00)
== END | disposition home or self-care (01) ==
LOC: LABWHC1 08:41
PROVIDERS: ATTEND Family Medicine
DX: M81.0 Age-related osteoporosis without current pathological fracture (principal); Z82.49 Family history of ischemic heart disease and other diseases of the circulatory system
CPT/HCPCS: 36415; 80053; 80061; 82306; 85025

== ENCOUNTER → 2021-09-20 | Outpatient (CLI) | payer MEDICARE ==
--- NOTE | 2021-09-20 12:17 | BD ---
EXAMINATION TYPE: Axial Bone Density DATE OF EXAM: 09/20/2021 COMPARISON: NONE CLINICAL HISTORY: 71 years year old Female. ICD-10 CODE: M81.0 Osteoporosis Height: 5 FT 3 IN Weight: 120 FRAX RISK QUESTIONS: Alcohol (3 or more units per day): NO Family History (Parent hip fracture): YES Glucocorticoids (More than 3mos): NO (Ex: prednisone, prednisolone, methylprednisolone, dexamethasone, and hydrocortisone). History of Fracture in Adulthood: YES Secondary Osteoporosis: 1. Type 1 Diabetes: NO 2. Hyperthyroidism: NO 3. Menopause before 45: NO 4. Malnutrition: NO 5. Chronic liver disease: NO Rheumatoid Arthritis: NO Current Tobacco Use: NO RISK FACTORS HISTORY OF: Surgery to Spine/Hip(right/left)/Wrist (right/left): NO Family History of Osteoporosis: NO Active: YES Diet low in dairy products/other sources of calcium: NO Postmenopausal woman: YES Take estrogen and/or progesterone medications: NO Lost more than 2 inches in height since high school: YES Frequent falls: NO Poor Health: GOOD Hyperparathyroidism: NO Adrenal Insufficiency: NO MEDICATIONS: Additional Medications: BLOOD PRESSURE MEDS,BABY ASPIRIN Additional History: EXAM MEASUREMENTS: Bone mineral densitometry was performed using the [employer] System. Bone mineral density as measured about the Lumbar spine is: ----- L1-L4(G/cm2): 0.913 T Score Values are as follows: ----- L1: -2.6 ----- L2: -3.0 ----- L3: -2.5 ----- L4: -1.2 ----- L1-L4: -2.2 Bone mineral density has: DECREASED -2.5 % since study of: 2017 Bone mineral density about the R hip (g/cm2): 0.685 Bone mineral density about the L hip (g/cm2): 0.696 T Score values are as follows: -----R Neck: -2.5 -----L Neck: -2.5 -----R Total: -2.5 -----L Total: -2.3 Bone mineral density has: DECREASED -7.7 % since study of: 2017 FRAX%s: The graph provided illustrates a 22.3 % chance for a major osteoporotic fx and a 6.6 % chance for the hips probability for fx in 10 years time. IMPRESSION: Osteoporosis (T Score less than -2.5). There is increased fracture risk and therapy is usually indicated based on age. Re-Screen 1-2 years. NOTE: T-SCORE=SD OF THE YOUNG ADULT MEAN.
--- NOTE | 2021-09-21 09:22 | MM ---
Reason for Exam: Screening (asymptomatic). Last screening mammogram was performed 12 month(s) ago. Patient History: Menarche at age 10. First Full-Term at age 28. Postmenopausal. 1991, Benign Excisional Biopsy on the right side. Risk Values: Esperanza 5 year model risk: 2.5%. NCI Lifetime model risk: 6.6%. Prior Study Comparison: 02/24/2018 Bilateral Screening Mammogram, [facility]. 03/10/2019 Bilateral Screening Mammogram, [facility]. 09/15/2020 Bilateral Screening Mammogram, [facility]. Tissue Density: The breast tissue is heterogeneously dense. This may lower the sensitivity of mammography. Findings: Analyzed By CAD. There is no suspicious group of microcalcifications or new suspicious mass in either breast. Overall Assessment: Negative, BI-RAD 1 Management: Screening Mammogram of both breasts in 1 year. A clinical breast exam by your physician is recommended on an annual basis and results should be correlated with mammographic findings. Electronically signed and approved by: Andrez Sloan DO
== END | disposition home or self-care (01) ==
LOC: RADMAMWWP 10:40
PROVIDERS: ATTEND Family Medicine
DX: Z12.31 Encounter for screening mammogram for malignant neoplasm of breast (principal); M81.0 Age-related osteoporosis without current pathological fracture
CPT/HCPCS: 77063; 77067; 77080

== ENCOUNTER 2022-09-29 12:32 | Emergency (ER) | payer MEDICARE ==
[2022-09-29 13:15] VITALS: RESP 16
--- NOTE | 2022-09-29 13:23 | XR ---
EXAMINATION TYPE: XR chest 2V DATE OF EXAM: 09/29/2022 1:17 PM COMPARISON: Chest radiographs from 06/26/2018 TECHNIQUE: XR chest 2V Frontal and lateral views of the chest. CLINICAL INDICATION:Female, 72 years old with history of r/o PNA; shortness of breath FINDINGS: Lungs/Pleura: There is no evidence of pleural effusion, focal consolidation, or pneumothorax. Pulmonary vascularity: Unremarkable. Heart/mediastinum: Cardiomediastinal silhouette is unremarkable. Musculoskeletal: No acute osseous pathology. IMPRESSION: No acute cardiopulmonary disease/process.
--- NOTE | 2022-09-29 13:44 | ED ---
General Adult HPI - General Chief complaint: Upper Respiratory Infection Stated complaint: Positive At Home Covid Test Time Seen by Provider: 09/29/22 12:45 Source: patient Mode of arrival: ambulatory Limitations: no limitations - History of Present Illness Initial comments: 72-year-old female with a past medical history significant for hypertension on n ifedipine presents to ED with chief complaint of COVID. She states 5 days ago started to develop postnasal drainage and was seen and placed on Augmentin. States over the past 2-3 days has developed a nonproductive cough. Today states that she took a COVID test, which was positive prompting her to present to the ED for further evaluation. Denies fever, chest pain, shortness of breath. No other complaints. - Related Data Home Medications Medication Instructions Recorded Confirmed Calcium Carbonate [Calcium] 600 mg PO DAILY 08/06/20 08/06/20 Cholecalciferol [Vitamin D3 (25 50 mcg PO DAILY 08/06/20 08/06/20 Mcg = 1000 Iu)] lisinopriL [Prinivil] 20 mg PO DAILY 08/06/20 08/06/20 Previous Rx's Medication Instructions Recorded Aspirin 81 mg PO DAILY #1 chewable 06/26/18 Allergies Allergy/AdvReac Type Severity Reaction Status Date / Time ceftriaxone [From Rocephin] AdvReac Intermediate Abdominal Verified 09/29/22 12:43 Pain Review of Systems ROS Statement: Those systems with pertinent positive or pertinent negative responses have been documented in the HPI. ROS Other: All systems not noted in ROS Statement are negative. Past Medical History Past Medical History: No Reported History Additional Past Medical History / Comment(s): Lyme's disease 20 years ago History of Any Multi-Drug Resistant Organisms: None Reported Past Surgical History: Adenoidectomy, Breast Surgery, Cholecystectomy, Hernia Repair, Tonsillectomy Additional Past Surgical History / Comment(s): inguinal and umbilical hernia repairs, POLYPECTOMY-NEG Past Anesthesia/Blood Transfusion Reactions: No Reported Reaction Past Psychological History: No Psychological Hx Reported Smoking Status: Never smoker Past Alcohol Use History: Occasional Past Drug Use History: None Reported - Past Family History Father Family Medical History: AICD/Pacemaker Additional Family Medical History / Comment(s): AGE 79 LUNG CA Mother Family Medical History: CVA/TIA, Hypertension Additional Family Medical History / Comment(s): STILL ALIVE AGE 88 General Exam Limitations: no limitations General appearance: alert, in no apparent distress Eye exam: Present: normal appearance ENT exam: Present: mucous membranes moist Respiratory exam: Present: normal lung sounds bilaterally Cardiovascular Exam: Present: regular rate, normal rhythm GI/Abdominal exam: Present: soft Neurological exam: Present: alert, oriented X3 Skin exam: Present: warm, dry Course Vital Signs 09/29/22 09/29/22 12:38 13:08 Temperature 98.8 F Pulse Rate 89 Respiratory 18 16 Rate Blood Pressure 153/93 O2 Sat by Pulse 98 Oximetry Medical Decision Making - Medical Decision Making Was pt. sent in by a medical professional or institution (, PA, TELEPHONE INFORMATION SUPERVISOR, urgent care, hospital, or fci...) When possible be specific @ -No Did you speak to anyone other than the patient for history (EMS, parent, family, police, friend...)? What history was obtained from this source @ -No Did you review nursing and triage notes (agree or disagree)? Why? @ -I reviewed and agree with nursing and triage notes Were old charts reviewed (outside hosp., previous admission, EMS record, old EKG, old radiological studies, urgent care reports/EKG's, fci records)? Report findings @ -No old charts were reviewed Differential Diagnosis (chest pain, altered mental status, abdominal pain women, abdominal pain men, vaginal bleeding, weakness, fever, dyspnea, syncope, headache, dizziness, GI bleed, back pain, seizure, CVA, palpatations, mental health, musculoskeletal)? @ -Differential Dyspnea: Coronary syndrome, arrhythmia, tamponade, asthma, COPD, pulmonary embolism, pneumonia, pneumothorax, pulmonary effusion, anaphylaxis, diabetic ketoacidosis, flailed chest, pulmonary contusion, diaphragmatic rupture, anemia, neuromuscular, this is not meant to be an all-inclusive list. EKG interpreted by me (3pts min.). @ -None X-rays interpreted by me (1pt min.). @ -X-ray shows no evidence of pneumonia or other acute process. CT interpreted by me (1pt min.). @ -None done U/S interpreted by me (1pt. min.). @ -None done What testing was considered but not performed or refused? (CT, X-rays, U/S, labs)? Why? @ -None What meds were considered but not given or refused? Why? @ -None Did you discuss the management of the patient with other professionals (professionals i.e. , PA, TELEPHONE INFORMATION SUPERVISOR, lab, RT, psych nurse, social media content specialist, medical technical writer, teacher, combat information center officer, case fitter)? Give summary @ -No Was smoking cessation discussed for >3mins.? @ -No Was critical care preformed (if so, how long)? @ -No Were there social determinants of health that impacted care today? How? (Homelessness, low income, unemployed, alcoholism, drug addiction, transportation, low edu. Level, literacy, decrease access to med. care, [facility], rehab)? @ -No Was there de-escalation of care discussed even if they declined (Discuss DNR or withdrawal of care, Hospice)? DNR status @ -No What co-morbidities impacted this encounter? (DM, HTN, Smoking, COPD, CAD, Cancer, CVA, ARF, Chemo, Hep., AIDS, mental health diagnosis, sleep apnea, morbid obesity)? @ -Hypertension Was patient admitted / discharged? Hospital course, mention meds given and route, prescriptions, significant lab abnormalities, going to OR and other pertinent info. @ -Discharged. Chest x-ray here shows no evidence of pneumonia. At this time patient on day 5 and Paxil elevated is contraindicated with patient's current description of nifedipine you to being a strong CYP3A inhibitor. At this time, vital signs stable, afebrile. Patient discharged home in stable condition. Advised continued supportive care with [id number] medications. Deferred prescription for medications. Discussed return precautions with patient who verbalizes agreement. Undiagnosed new problem with uncertain prognosis? @ -No Drug Therapy requiring intensive monitoring for toxicity (Heparin, Nitro, Insulin, Cardizem)? @ -No Were any procedures done? @ -No Diagnosis/symptom? @ -COVID Acute, or Chronic, or Acute on Chronic? @ -Acute Uncomplicated (without systemic symptoms) or Complicated (systemic symptoms)? @ -Uncomplicated Side effects of treatment? @ -No Exacerbation, Progression, or Severe Exacerbation? @ -No Poses a threat to life or bodily function? How? (Chest pain, [place], NM, pneumonia, PE, COPD, DKA, ARF, appy, cholecystitis, CVA, Diverticulitis, Homicidal, Suicidal, threat to staff... and all critical care pts) @ -No Disposition Clinical Impression: COVID-19 Disposition: HOME SELF-CARE Condition: Good Instructions (If sedation given, give patient instructions): Upper Respiratory Infection (ED) Additional Instructions: Please return to the Emergency Department if symptoms worsen or any other concerns. Is patient prescribed a controlled substance at d/c from ED?: No Referrals: John Paul Gonsalez MD [Primary Care Provider] - 1-2 days Time of Disposition: 13:45
[2022-09-29 14:09] VITALS: BP 133/85; PULSE 90; TEMP 98.7
== END 2022-09-29 14:09 | disposition home or self-care (01) ==
LOC: EC 12:32
DX: U07.1 COVID-19 (principal); Z88.1 Allergy status to other antibiotic agents
CPT/HCPCS: 71046; 87636; 99283

== ENCOUNTER → 2023-07-27 | Outpatient (CLI) | payer MEDICARE ==
--- NOTE | 2023-07-27 16:24 | MR ---
EXAMINATION TYPE: MR brain and iac wo/w con DATE OF EXAM: 07/27/2023 COMPARISON: None HISTORY: NO prior, right ear tinnitus, 5.5 gadavist CONTRAST: Performed utilizing 5.5 mL intravenous Gadavist gadolinium contrast. TECHNIQUE: Multiplanar, multiecho imaging on a 3.0 Lexie magnet is performed through the brain. Atte ntion is paid to the internal auditory canals with thin section imaging. Postcontrast imaging is per formed through the internal auditory canals. FINDINGS:Craniovertebral junction is normal. The pituitary is normal. Diffusion-weighted imaging is performed. No suspicious hyperintensity is present to suggest an acute intracranial infarct or acute ischemic area. Signal within the brain has scattered areas of hyperintensity within the basal ganglia and subcortica l white matter which are non-specific but could be related to microvascular ischemic changes. The la rgest is in the left subcortical parietal lobe measuring 0.6 cm. Series 601 image 20. Thin section imaging is performed through the internal auditory canals and cerebellar pontine angles. No cerebellar pontine angle masses are evident. The internal auditory canals appear normal without expansion or erosion. Postcontrast imaging was performed. No suspicious enhancement is evident within the internal audito ry canals or the included portions of the brain. IMPRESSION: 1. Scattered deep point matter changes likely on the basis of chronic white matter ischemic type garcia ges. 2. No suspicious internal auditory canal abnormality to account for right-sided tinnitus.
== END | disposition home or self-care (01) ==
LOC: RADMRIMAIN 14:35
PROVIDERS: ATTEND Otolaryngology
DX: G93.89 Other specified disorders of brain (principal); H93.11 Tinnitus, right ear
CPT/HCPCS: 70553; A9585

== ENCOUNTER → 2023-09-30 | Outpatient (CLI) | payer MEDICARE ==
--- NOTE | 2023-11-07 08:08 | MM ---
Reason for Exam: Screening (asymptomatic). Last screening mammogram was performed 12 month(s) ago. Patient History: Menarche at age 10. First Full-Term at age 28. Postmenopausal. Patient has history of breast feeding. 1991, Benign Excisional Biopsy on the right side. Risk Values: Esperanza 5 year model risk: 2.5%. NCI Lifetime model risk: 5.8%. Prior Study Comparison: 09/15/2020 Bilateral Screening Mammogram, [facility]. 09/20/2021 Bilateral MG 3D screening mammo w/cad, [facility]. 09/21/2022 Bilateral MG 3D screening mammo w/cad, [facility]. Tissue Density: The breasts are heterogeneously dense, which may obscure small masses. Findings: Analyzed By CAD. Asymmetric density far posterior left breast 8 cm from the nipple. Additional views are recommended. No evidence for asymmetric density or mass within the right breast. No suspicious microcalcifications bilaterally. Overall Assessment: Incomplete: need additional imaging evaluation, BI-RAD 0 Management: Diagnostic Mammogram of the left breast. . Patient should continue monthly self-breast exams. A clinical breast exam by your physician is recommended on an annual basis. This exam should not preclude additional follow-up of suspicious palpable abnormalities. Note on Esperanza scores and lifetime risk: 1. A Esperanza score greater than 3% is considered moderate risk. If this is the case, consider specialist referral to assess eligibility for a risk reducing agent. 2. If overall lifetime risk for the development of breast cancer is 20% or higher, the patient may qualify for future screening with alternating mammogram and breast MRI. Electronically signed and approved by: Santana Yates M.D. Radiologis
== END | disposition home or self-care (01) ==
LOC: RADMAMWWP 08:06
PROVIDERS: ATTEND Family Medicine
DX: Z12.31 Encounter for screening mammogram for malignant neoplasm of breast (principal); Z78.0 Asymptomatic menopausal state; R92.333 Mammographic heterogeneous density, bilateral breasts
CPT/HCPCS: 77063; 77067

== ENCOUNTER → 2023-11-07 | Outpatient (CLI) | payer MEDICARE ==
--- NOTE | 2023-11-07 08:39 | MM ---
Reason for Exam: Additional evaluation requested from abnormal screening. Last screening mammogram was performed 2 month(s) ago. Patient History: Menarche at age 10. First Full-Term at age 28. Postmenopausal. Patient has history of breast feeding. 1991, Benign Excisional Biopsy on the right side. Risk Values: Esperanza 5 year model risk: 2.5%. NCI Lifetime model risk: 5.8%. Prior Study Comparison: 09/20/2021 Bilateral MG 3D screening mammo w/cad, [facility]. 09/21/2022 Bilateral MG 3D screening mammo w/cad, [facility]. 09/30/2023 Bilateral MG 3D screening mammo w/cad, [facility]. Tissue Density: Left: The breasts are heterogeneously dense, which may obscure small masses. Findings: Analyzed By CAD. Asymmetric density central posterior left CC view incompletely disperses on spot 3-D view. The area becomes much less defined on the 3-D CC rolled female and appears to be located more medial suggesting an inferior location. The appearance is that of patchy fiber glandular tissue. Further ultrasound evaluation recommended. Overall Assessment: Incomplete: need additional imaging evaluation, BI-RAD 0 Management: Diagnostic Breast Ultrasound of the left breast. 5 to 6:00 position. Electronically signed and approved by: Gwen Oneill M.D. Radiologist
--- NOTE | 2023-11-07 09:18 | USB ---
Reason for Exam: Additional evaluation requested from abnormal screening. Patient History: Menarche at age 10. First Full-Term at age 28. Postmenopausal. Patient has history of breast feeding. 1991, Benign Excisional Biopsy on the right side. Risk Values: Esperanza 5 year model risk: 2.5%. NCI Lifetime model risk: 5.8%. Technique: Method: Targeted. Prior Study Comparison: 09/20/2021 Bilateral MG 3D screening mammo w/cad, [facility]. 09/21/2022 Bilateral MG 3D screening mammo w/cad, [facility]. 09/30/2023 Bilateral MG 3D screening mammo w/cad, [facility]. Findings: The lower outer quadrant of the left breast, the axilla of the left breast and the retroareolar of the left breast were scanned. Targeted ultrasound left breast 5 to 6:00 position including scanning of the subareolar region and axilla. There is an island of dense tissue at the 5:00 position, 2 cm from the nipple, containing a vague 9 x 8 x 2 mm hypoechoic area, suspected embedded fat lobule. This does not have the appearance of a suspicious mass. Reassess in 6 months. No other solid or cystic lesion or axillary lymphadenopathy. Overall Assessment: Probably benign, BI-RAD 3 Management: Diagnostic Mammogram of the left breast in 6 months. Diagnostic Breast Ultrasound of the left breast in 6 months. A clinical breast exam by your physician is recommended on an annual basis and results should be correlated with mammographic findings. This exam should not preclude additional follow-up of suspicious palpable abnormalities. Results were given to the patient verbally at the time of exam. Electronically signed and approved by: Gwen Oneill M.D. Radiologist
== END | disposition home or self-care (01) ==
LOC: RADMAMWWP 08:00
PROVIDERS: ATTEND Family Medicine
DX: R92.8 Other abnormal and inconclusive findings on diagnostic imaging of breast
CPT/HCPCS: 77061; 77065

== ENCOUNTER → 2024-05-11 | Outpatient (CLI) | payer MEDICARE ==
--- NOTE | 2024-05-11 07:57 | MM ---
Reason for Exam: Follow-up at short interval from prior study. Last screening mammogram was performed 8 month(s) ago. Patient History: Menarche at age 10. First Full-Term at age 28. Postmenopausal. Patient has history of breast feeding. 1991, Benign Excisional Biopsy on the right side. Risk Values: Esperanza 5 year model risk: 2.5%. NCI Lifetime model risk: 5.5%. Tissue Density: The breasts are heterogeneously dense, which may obscure small masses. Findings: Analyzed By CAD. Right breast: 7 mm nodular density inner lower right breast 4 cm from the nipple. Ultrasound is recommended. Left breast: Patchy fibroglandular tissue upper outer left breast remains unchanged. Ultrasound review is recommended. No suspicious consultations within either breast. Overall Assessment: Incomplete: need additional imaging evaluation, BI-RAD 0 Management: Diagnostic Breast Ultrasound of both breasts. . Results were given to the patient verbally at the time of exam. Patient should continue monthly self-breast exams. A clinical breast exam by your physician is recommended on an annual basis. This exam should not preclude additional follow-up of suspicious palpable abnormalities. Note on Esperanza scores and lifetime risk: 1. A Esperanza score greater than 3% is considered moderate risk. If this is the case, consider specialist referral to assess eligibility for a risk reducing agent. 2. If overall lifetime risk for the development of breast cancer is 20% or higher, the patient may qualify for future screening with alternating mammogram and breast MRI. [facility], , 05/11/2024 7:54 AM. Electronically signed and approved by: Santana Yates M.D. Radiologis
--- NOTE | 2024-05-11 08:05 | USB ---
Reason for Exam: Follow-up at short interval from prior study. Patient History: Menarche at age 10. First Full-Term at age 28. Postmenopausal. Patient has history of breast feeding. 1991, Benign Excisional Biopsy on the right side. Risk Values: Esperanza 5 year model risk: 2.5%. NCI Lifetime model risk: 5.5%. Technique: Method: Targeted. Doppler: Color. Patient Position: Supine. Prior Study Comparison: 09/21/2022 Bilateral MG 3D screening mammo w/cad, [facility]. 09/30/2023 Bilateral MG 3D screening mammo w/cad, [facility]. 11/07/2023 Left MG 3D work up w/cad , [facility]. Findings: The lower outer quadrant of the left breast, the lower inner quadrant of the right breast, the axilla of both breasts and the retroareolar of both breasts were scanned. Right breast: At the right 5:00 position there is an island of tissue noted without distinct mass appreciated at this time. Left breast: Also noted at the left 5:00 position was not tissue with interposed fat island suspected. No distinct mass appreciated. Continued six-month follow-up is advised. Overall Assessment: Probably benign, BI-RAD 3 Management: Diagnostic Breast Ultrasound of both breasts in 6 months. A clinical breast exam by your physician is recommended on an annual basis and results should be correlated with mammographic findings. This exam should not preclude additional follow-up of suspicious palpable abnormalities. Results were given to the patient verbally at the time of exam. [facility], , 05/11/2024 8:02 AM. Electronically signed and approved by: Santana Yates M.D. Radiologis
--- NOTE | 2024-05-11 09:33 | BD ---
EXAMINATION TYPE: Axial Bone Density DATE OF EXAM: 05/11/2024 CLINICAL HISTORY: 74 years old Female. ICD-10 CODE: N95.1 MENOPAUSAL AND FEMALE CLIMACTERIC STATES , Additional History: Height: 63" Weight: 128lbs FRAX RISK QUESTIONS: Alcohol (3 or more units per day): No Family History (Parent hip fracture): Yes, mother Glucocorticoids (More than 3mos): No (Ex: prednisone, prednisolone, methylprednisolone, dexamethasone, and hydrocortisone). History of Fracture in Adulthood: Yes, ankle Secondary Osteoporosis: 1. Type 1 Diabetes: No 2. Hyperthyroidism: No 3. Menopause before 45: No 4. Malnutrition: No 5. Chronic liver disease: No Rheumatoid Arthritis: No Current Tobacco Use: No RISK FACTORS HISTORY OF: Hip Fracture (Right/Left): No Spine Fracture: No History of Wrist Fracture: No Surgery to Spine/Hip(right/left)/Wrist (right/left): No MEDICATIONS: Thyroid Medications: No Osteoporosis Medications: No EXAM MEASUREMENTS: Bone mineral densitometry was performed using the [employer] System. Bone mineral density as measured about the Lumbar spine is: ----- L1-L4(G/cm2): 0.907 T Score Values are as follows: ----- L1: -2.8 ----- L2: -3.1 ----- L3: -2.3 ----- L4: -1.4 ----- L1-L4: -2.3 Z Score Values are as follows: ----- L1: -0.8 ----- L2: -1.1 ----- L3: -0.3 ----- L4: 0.6 ----- L1-L4: -0.3 Bone mineral density has: decreased -0.7% since study of: 09/20/2021 Bone mineral density about the R hip (g/cm2): 0.696 Bone mineral density about the L hip (g/cm2): 0.710 T Score values are as follows: -----R Neck: -2.7 -----L Neck: -2.4 -----R Total: -2.5 -----L Total: -2.4 Z Score values are as follows: -----R Neck: -0.6 -----L Neck: -0.3 -----R Total: -0.6 -----L Total: -0.3 Bone mineral density has: decreased -1.0% since study of: 09/20/21 FRAX%s: The graph provided illustrates a 44.8% chance for a major osteoporotic fx and a 31.5% chance for the hips probability for fx in 10 years time. IMPRESSION: Osteoporosis (T Score less than -2.5). There is increased fracture risk and therapy is usually indicated based on age. Re-Screen 1-2 years. NOTE: T-SCORE=SD OF THE YOUNG ADULT MEAN. [facility], , 05/11/2024 9:31 AM
== END | disposition home or self-care (01) ==
LOC: RADMAMWWP 07:11
PROVIDERS: ATTEND Family Medicine
DX: R92.8 Other abnormal and inconclusive findings on diagnostic imaging of breast (principal); R92.333 Mammographic heterogeneous density, bilateral breasts; Z78.0 Asymptomatic menopausal state
CPT/HCPCS: 77062; 77066; 77080

== ENCOUNTER → 2024-09-30 | Outpatient (CLI) | payer MEDICARE | END | disposition home or self-care (01) | LOC: RADMAMWWP 09:06 | PROVIDERS: ATTEND Family Medicine | DX: Z53.9 Procedure and treatment not carried out, unspecified reason (principal) ==